=== PATIENT | male | born 1965 | race Caucasian/White ===

== ENCOUNTER → 2023-07-29 07:21 | Outpatient (REF) | payer OTHER, SELFPAY | LOC: HWRAD 07:21 | PROVIDERS: ATTENDING PHYSICIAN Specialist; FAMILY PHYSICIAN Family Medicine | DX: N20.0 Calculus of kidney (principal) | CPT/HCPCS: 74176 ==

== ENCOUNTER 2023-08-19 23:31 | Inpatient (IN) | payer OTHER, SELFPAY ==
[2023-08-19 19:17] VITALS: BP 114/74
[2023-08-19 19:29] LABS: % Basophils 0.4 % (0-2); % Eosinophils 0.2 % (0-6); % Immature Granulocytes 0.6 % (0-0.5); % Monocytes 6.2 % (1.7-9.3); % Neutrophils 90.6 % (42.2-75.2); Absolute Basophils 0.1 10^3/uL (0-0.2); Absolute Eosinophils 0.1 10^3/uL (0-0.7); Absolute Immature Granulocytes 0.2 10^3/uL (0-0.05); Absolute Lymphocytes 0.5 10^3/uL (1.2-3.4); Absolute Monocytes 1.7 10^3/uL (0.1-0.6); Hematocrit 44.2 % (39.0-52.0); Hemoglobin 15.4 g/dL (13.0-18.0); Mean Corp Hgb Conc. 34.8 g/dL (33.0-37.0); Mean Corpuscular Hgb 29.1 pg (27.0-31.0); Mean Corpuscular Volume 83.4 fL (80.0-94.0); Mean Platelet Volume 9.4 fL (7.4-10.4); Nucleated Red Blood Cells % 0 % (-); Platelet Count 249 10^3/uL (130-400); Red Cell Dist. Width 12.6 % (11.5-14.5); White Blood Cell Count 26.4 10^3/uL (4.8-10.8)
[2023-08-19 19:49] LABS: ALT (SGPT) 31 U/L (0-50); AST (SGOT) 27 U/L (17-59); Albumin 4.5 g/dl (3.5-5.0); Alkaline Phosphatase 74 U/L (38-126); Blood Urea Nitrogen 9 mg/dl (9-20); Calcium 9.1 mg/dl (8.4-10.2); Carbon Dioxide 27 mmol/L (22-30); Chloride 96 mmol/L (98-107); Glucose 207 mg/dl (70-99); Potassium 3.7 mmol/L (3.5-5.1); Sodium 133 mmol/L (135-145); Total Bilirubin 3.1 mg/dl (0.2-1.3); Total Protein 7.4 g/dl (6.3-8.2); eGFR > 60.00
[2023-08-19 22:18] VITALS: BMI 31.5
[2023-08-19] MEDS: TORADOL 30 MG IV (22:20)
[2023-08-19] MEDS: TYLENOL 1000 MG PO (22:20)
[2023-08-19 22:23] VITALS: BP 111/65
[2023-08-19 22:34] LABS: Erythrocyte Sed Rate 18 mm/hour (0-20)
--- NOTE | 2023-08-19 22:35 | ED.GENMED ---
History of Present Illness
<Gordy Ramos PA-C - Last Filed: 08/20/23 00:48>
General
Chief Complaint: Fever
Source: patient and spouse
Time Seen by Provider: 08/19/23 21:52
Travel History
Have you had any contact with someone who has COVID-19?: No
Do you have any symptoms of coronavirus? Fever > 100 degrees, chills, cough, shortness of breath, sore throat, loss of taste or smell, muscle aches, or headache?: No
History of Present Illness
History of Present Illness:
58-year-old male with past medical history of [id number] diabetes presenting the emergency department for evaluation of right knee pain, erythema, edema, fevers, chills and generally feeling unwell. Patient states the knee started to
bother him on Saturday after he had been changing the brakes on his car and this morning woke up with significant edema, erythema and pain. Patient states he felt febrile but did not know had a fever until later in the morning. Patient's last dose
of Motrin was around 10 AM. He does note that about 3 weeks ago he excellently burned himself with a table saw but states this area is different from the symptoms that brought him here today. Patient denies any trauma to the right knee. He denies
any tick bites. No known history of gout or other rheumatological disease.
Past History
<Gordy Ramos PA-C - Last Filed: 08/20/23 00:48>
Past History
ED Past Medical History: NIDDM and Other (Kidney stones)
ED Past Surgical History: Other (hernia)
Social History
Tobacco: Non-smoker
Alcohol: None
Drug: None
Personal:
Living: with family
Employment: Employed
Family History
Family History: Other
Review of Systems
<Gordy Ramos PA-C - Last Filed: 08/20/23 00:48>
Review of Systems
All Other Systems: ROS reviewed and negative except as documented in HPI and ROS
Phy Exam
<Godry Ramos PA-C - Last Filed: 08/20/23 00:48>
Physical Exam
Physical Exam:
GENERAL: Alert , in no apparent distress
EYE: conjunctiva clear
NECK: Supple, no significant adenopathy.
ENT: o/p clr, mmm.
CARDIAC: Regular rate and rhythm
LUNGS: Clear breath sounds bilaterally, no acute respiratory distress, no wheezes/rales/rhonchi
NEUROLOGICAL: Alert and oriented
SKIN: Warm and dry, right knee has significant erythema overlying the anterior patella extending laterally with small streaking medially. It is significantly hot to the touch, very tender. There are superficial abrasions distal to the knee that do
not appear infected
MUSCULOSKELETAL: well perfused. Patient unable to range of motion his right knee secondary to pain. No palpable effusion
PSYCH: Normal and appropriate interaction.
Scores
<Gordy Ramos PA-C - Last Filed: 08/20/23 00:48>
Heart Failure Risk
Heart Failure Risk Score: Not Applicable
Heart Score for Chest Pain Patients
STEMI patient?: Not applicable
Withdrawal Assessment of Alcohol
Withdrawal Assessment Completed?: Not applicable
Course
<Gordy Ramos PA-C - Last Filed: 08/20/23 00:48>
Orders/Labs/Results
Orders:
Orders
08/19/23 19:22
CMP [Comprehensive Metabolic Panel] Urgent
Complete Blood Count/With Diff Urgent
08/19/23 22:00
Acetaminophen [Tylenol] 1,000 mg PO NOW STA
Ketorolac [Toradol] 30 mg IV NOW STA
CR Knee- Right 4 Or More View* Urgent
Comment:
Reason For Exam: pain, fever, edema
08/19/23 22:09
Lyme Progressive Urgent
Blood Culture Q30M
GINGER Source: Blood/Venous
Specimen Description:
Blood Culture Q30M
GINGER Source: Blood/Venous
Specimen Description:
08/19/23 22:10
CRP [C-Reactive Protein] Urgent
ESR [Erythrocyte Sed Rate] Urgent
Lactic Acid Q4H
Comment: CANCEL 2nd LACTIC ACID IF 1st LACTIC ACID IS LESS THAN 2
08/19/23 23:17
Admit/Transfer Patient As Directed
Co-Sign Provider:
Level of Care: Inpatient admission
Assign to:: Medical/Surgical
Physician / Group: rissa
Diagnosis: prepatellar bursitis
Reason for Hospitalization: prepatellar burstitis
Expected length of stay greater than two midnights?: Yes
ELOS- Estimated Length of Stay in days: 2
I certify the patient meets the requirements for IP care: Yes
08/19/23 23:18
Code Status As Directed
Resuscitation Status: Full Code
08/20/23 02:00
Lactic Acid Q4H
Comment: CANCEL 2nd LACTIC ACID IF 1st LACTIC ACID IS LESS THAN 2
Abnormal Lab Results
08/19/23 08/19/23
19:22 22:10
WBC 26.4 H 10^3/uL
(4.8-10.8)
Abs Immat Gran (auto) 0.2 H 10^3/uL
(0-0.05)
Absolute Neuts (auto) 24.0 H 10^3/uL
(1.4-6.5)
Absolute Lymphs (auto) 0.5 L 10^3/uL
(1.2-3.4)
Absolute Monos (auto) 1.7 H 10^3/uL
(0.1-0.6)
Immature Gran % 0.6 H %
(0-0.5)
Neutrophils % 90.6 H %
(42.2-75.2)
Lymphocytes % 2.0 L %
(20.5-51.1)
Sodium 133 L mmol/L
(135-145)
Chloride 96 L mmol/L
(98-107)
Glucose 207 H mg/dl
(70-99)
Total Bilirubin 3.1 H mg/dl
(0.2-1.3)
C-Reactive Protein 223.40 H mg/L
(0.0-10.00)
08/19/23 19:22
08/19/23 19:22
Vital Signs
Initial and Last Documented VS:
Initial Vital Signs
Temp Pulse Resp BP Pulse Ox
100.4 F H 134 24 114/74 96
08/19/23 19:17 08/19/23 19:17 08/19/23 19:17 08/19/23 19:17 08/19/23 19:17
Last Documented Vital Signs
Temp Pulse Resp BP Pulse Ox
99 F 103 18 112/67 96
08/20/23 00:43 08/20/23 00:43 08/20/23 00:43 08/20/23 00:43 08/20/23 00:43
<Ashwin Rojas, DO - Last Filed: 08/19/23 22:41>
Orders/Labs/Results
Orders:
Orders
08/19/23 19:22
CMP [Comprehensive Metabolic Panel] Urgent
Complete Blood Count/With Diff Urgent
08/19/23 22:00
Acetaminophen [Tylenol] 1,000 mg PO NOW STA
Ketorolac [Toradol] 30 mg IV NOW STA
CR Knee- Right 4 Or More View* Urgent
Comment:
Reason For Exam: pain, fever, edema
08/19/23 22:09
Lyme Progressive Urgent
Blood Culture Q30M
GINGER Source: Blood/Venous
Specimen Description:
Blood Culture Q30M
GINGER Source: Blood/Venous
Specimen Description:
08/19/23 22:10
CRP [C-Reactive Protein] Urgent
ESR [Erythrocyte Sed Rate] Urgent
Lactic Acid Q4H
Comment: CANCEL 2nd LACTIC ACID IF 1st LACTIC ACID IS LESS THAN 2
08/19/23 23:17
Admit/Transfer Patient As Directed
Co-Sign Provider:
Level of Care: Inpatient admission
Assign to:: Medical/Surgical
Physician / Group: rissa
Diagnosis: prepatellar bursitis
Reason for Hospitalization: prepatellar burstitis
Expected length of stay greater than two midnights?: Yes
ELOS- Estimated Length of Stay in days: 2
I certify the patient meets the requirements for IP care: Yes
08/19/23 23:18
Code Status As Directed
Resuscitation Status: Full Code
08/20/23 02:00
Lactic Acid Q4H
Comment: CANCEL 2nd LACTIC ACID IF 1st LACTIC ACID IS LESS THAN 2
Abnormal Lab Results
08/19/23 08/19/23
19:22 22:10
WBC 26.4 H 10^3/uL
(4.8-10.8)
Abs Immat Gran (auto) 0.2 H 10^3/uL
(0-0.05)
Absolute Neuts (auto) 24.0 H 10^3/uL
(1.4-6.5)
Absolute Lymphs (auto) 0.5 L 10^3/uL
(1.2-3.4)
Absolute Monos (auto) 1.7 H 10^3/uL
(0.1-0.6)
Immature Gran % 0.6 H %
(0-0.5)
Neutrophils % 90.6 H %
(42.2-75.2)
Lymphocytes % 2.0 L %
(20.5-51.1)
Sodium 133 L mmol/L
(135-145)
Chloride 96 L mmol/L
(98-107)
Glucose 207 H mg/dl
(70-99)
Total Bilirubin 3.1 H mg/dl
(0.2-1.3)
C-Reactive Protein 223.40 H mg/L
(0.0-10.00)
08/19/23 19:22
08/19/23 19:22
Vital Signs
Initial and Last Documented VS:
Initial Vital Signs
Temp Pulse Resp BP Pulse Ox
100.4 F H 134 24 114/74 96
08/19/23 19:17 08/19/23 19:17 08/19/23 19:17 08/19/23 19:17 08/19/23 19:17
Last Documented Vital Signs
Temp Pulse Resp BP Pulse Ox
99 F 103 18 112/67 96
08/20/23 00:43 08/20/23 00:43 08/20/23 00:43 08/20/23 00:43 08/20/23 00:43
<Gordy Ramos PA-C - Last Filed: 08/20/23 00:48>
MDM/Problems Addressed
Differential Diagnosis Includes:
Septic arthritis, prepatellar bursitis, cellulitis
MDM/Problems Addressed:
58-year-old male present emergency department for evaluation of right knee pain, edema, erythema and fever. Symptoms started over the last 24 hours. Based off physical exam patient does not have any effusion that is palpable. I do have concern in
attempting to perform arthrocentesis given concern for cellulitis or prepatellar bursitis. Patient had basic labs ordered while in triage which revealed a leukocytosis of 26,000 with a leftward shift. Chemistry did yield a glucose greater than
200. I added on a lactic acid, blood cultures, inflammatory markers and Lyme's titer. X-ray of the right knee was ordered as well. Will discuss with orthopedics with ultimate plan to admit patient
Chronic conditions affecting care: DM
<Gordy Ramos PA-C - Last Filed: 08/20/23 00:48>
*Radiology
Radiology exam reviewed: preliminary read by ED provider (Soft tissue swelling, no fracture)
*Pulse Oximetry
Patient hypoxic: no
*Critical Care Note
Total Time (30-74mins, 75-104mins- exclusive of procedures): Not Applicable
<Gordy Ramos PA-C - Last Filed: 08/20/23 00:48>
Patient Management
Discussion with other providers: Hospitalist and Park Aide
Escalation/DeEscalation of care consider admission/obs:
Case discussed with orthopedics team who agrees with plan to hold off on aspirating the joint at this time. They also requested antibiotics be held until they evaluate the patient in the morning. Request patient be n.p.o. after midnight.
Hospitalist team is aware and accepts for continued evaluation and treatment.
ED Attending Note
<Gordy Ramos PA-C - Last Filed: 08/20/23 00:48>
-
Portions of this chart may have been created with voice recognition software.� Occasional wrong word or��sound alike� substitutions may have occurred due to the inherent limitations of voice recognition software.
<Ashwin Rojas DO - Last Filed: 08/19/23 22:41>
ED Attending Note
Patient seen and examined by attending physician: Yes
I performed the substantive portion of visit, reviewed & personally made and approve the management plan that is documented in note by myself or SHARYN.: Yes
ED Attending Note:
I have seen and evaluated the patient with a [id number] encounter. I have spoken to the advance practicer provider and involved in the medical history, the physical exam, medical decision making.
Evaluation and management service: agree unless noted differently below.
Results interpretation: agree unless noted differently below.
Focused HPI: 58-year-old male presenting with right knee pain and swelling. Symptoms have progressed over the past 24 hours. Patient found to be febrile. Patient states he was on his knees for 20+ minutes yesterday repairing break on the car
Physical exam: Swelling and tenderness to right knee with cellulitic changes and streaking
Medical Decision Making: Concern for septic arthritis versus septic prepatellar bursitis. Orthopedics made aware. Will refrain from antibiotics until orthopedics can evaluate
Discharge Plan
Departure
Patient Disposition: Admit
Date of Disposition: 08/19/23
Time of Disposition: 22:35
Presentation/result/management discussed w/ accepting MD/DO: Hospitalist
Discharge Problem:
Cellulitis of right knee
Interventions
Interventions:
*Risk Screen - Suicide Last Done: 08/19/23 19:17
*General Assessment Last Done: 08/19/23 22:18
*Neglect/Abuse Screening Last Done: 08/19/23 19:17
ED- Fall Risk Assessment Last Done: 08/19/23 22:18
*ED COVID-19 Vaccine History Last Done: 08/19/23 22:18
ED- Neurological Assessment Last Done: 08/19/23 22:18
ED-Skin Assessment Last Done: 08/19/23 23:18
[2023-08-19 23:00] VITALS: BP 100/66
--- NOTE | 2023-08-19 23:23 | HPS.HSE ---
Family Physician
-
Family Physician: Merry Mckeon MD
Chief Complaint
-
right knee pain, swelling and redness
History of Present Illness
58-year-old male past medical history of diabetes, kidney stones presenting for right knee pain, redness, swelling and fevers and chills and feeling unwell since yesterday after he had been changing the brakes in his car yesterday which involved
spending a lot of time on his knees. He denies any trauma to the right knee. 3 weeks ago he burned himself with a table saw after he knocked it over and it fell down striking his right calf. The burn area has been healing.
He denies smoking or alcohol use.
Medical History
Past Medical History
Past Medical History: Reports Other (diabetes, kidney stones)
Past Surgical History: Reports Other (hernia )
Social History
Tobacco: Non-smoker
Alcohol: None
Drug: None
Family History
Family History: Not pertinent
Allergies / Home Medications
Allergies reflects when Allergies were last updated in [employer].
Home Medications with original date entered in [employer]
Allergy/Medication List:
Allergies
Allergy/AdvReac Type Severity Reaction Status Date / Time
Penicillins Allergy breathing Verified 08/19/23 19:20
problems
and hives
Home Medications
aspirin 81 mg chewable tablet (Aspirin Childrens) 81 mg PO DAILY 07/15/18
metformin 500 mg tablet 500 mg PO BIDWMEAL 08/19/23
tamsulosin 0.4 mg capsule 0.4 mg PO QPM 08/19/23
Review of Systems
-
History Source: Patient
A 12 point ROS was completed and negative except as noted: Yes
Constitutional: Reports No Symptoms
EENT: Reports No Symptoms
Respiratory: Reports No Symptoms
Cardiac: Reports No Symptoms
Abdomen/GI: Reports No Symptoms
: Reports No Symptoms
Musculoskeletal: Reports No Symptoms
Skin: Reports No Symptoms
Neurological: Reports No Symptoms
Endocrine: Reports No Symptoms
Hematologic/Lymphatic: Reports No Symptoms
Psych: Reports No Symptoms
Physical Exam
Vital Signs
Vital Signs
Temp Pulse Resp BP Pulse Ox
101.8 F H 134 24 100/66 95
08/19/23 22:09 08/19/23 19:17 08/19/23 19:17 08/19/23 23:00 08/19/23 23:15
Physical Exam
General: Well Developed, Well Nourished and No Apparent Distress
HEENT: NormoCephalic, Moist mucous membranes and Atraumatic
Respiratory: Clear
Cardiac: S1/S2 and Regular Rhythm; No Murmur or Rub
GI: Soft, Non Tender, Non Distended and Normal Bowel Sounds; No Organomegaly
Rectal: Deferred by Provider
Musculoskeletal: No Clubbing, No Cyanosis, No Edema and Other (right knee suprapatellar erythema, tenderness and swelling )
Skin: No Rash
Neuro: Nonfocal/grossly intact
Laboratory Results
-
08/19/23 19:22
08/19/23 19:22
Laboratory Results
Lactic Acid 2.0 mmol/L (0.7-2.0) 08/19/23 22:10
Total Bilirubin 3.1 mg/dl (0.2-1.3) H 08/19/23 19:22
AST 27 U/L (17-59) 08/19/23 19:22
ALT 31 U/L (0-50) 08/19/23 19:22
Alkaline Phosphatase 74 U/L (38-126) 08/19/23 19:22
Data Reviewed
-
Lab Data: Labs Reviewed by me
Old Records: Reviewed
Impression/Plan
-
IMPRESSION:
PLAN:
# Sepsis (fever, leukocytosis, tachycardia) likely secondary to prepatellar bursitis versus less likely septic arthritis of right knee
-X-ray pending
-IV fluids
-Check blood cultures
-Lyme pending
-Tylenol, Toradol, Dilaudid for pain as needed
-Ortho recommended holding off on antibiotics for possible OR tomorrow
-Hold prophylactic aspirin for now
-NPO past midnight
# Right lower Skin burn
-Has been healing
Type 2 diabetes
-Continue metformin
-Insulin sliding scale
History of kidney stones
-Continue tamsulosin
Full code
DVT prophylaxis�SCDs
Regular diet
--- NOTE | 2023-08-20 00:28 | EDRN ---
Patient resting comfortably aware will be going upstairs shortly, called his to let her know where he will be going, patients temp is down and patient is resting comfortably.
[2023-08-20 00:43] VITALS: BP 112/67; BMI 30.7
[2023-08-20] MEDS: NSS 1000 IV ×2 (02:29→10:52)
[2023-08-20 06:31] LABS: Glucose - Point of Care 176 mg/dl (70-99)
[2023-08-20] MEDS: NOVOLOG FLEXPEN-LOW RESISTANCE 1 UNITS SC (06:43)
[2023-08-20 07:59] LABS: % Basophils 0.4 % (0-2); % Eosinophils 0.7 % (0-6); % Immature Granulocytes 0.8 % (0-0.5); % Lymphocytes 1.5 % (20.5-51.1); % Monocytes 5.7 % (1.7-9.3); % Neutrophils 90.9 % (42.2-75.2); Absolute Basophils 0.1 10^3/uL (0-0.2); Absolute Eosinophils 0.2 10^3/uL (0-0.7); Absolute Immature Granulocytes 0.2 10^3/uL (0-0.05); Absolute Lymphocytes 0.3 10^3/uL (1.2-3.4); Absolute Monocytes 1.3 10^3/uL (0.1-0.6); Absolute Neutrophils 20.5 10^3/uL (1.4-6.5); Hematocrit 39.2 % (39.0-52.0); Hemoglobin 13.8 g/dL (13.0-18.0); Mean Corp Hgb Conc. 35.2 g/dL (33.0-37.0); Mean Corpuscular Hgb 29.2 pg (27.0-31.0); Mean Corpuscular Volume 82.9 fL (80.0-94.0); Nucleated Red Blood Cells % 0 % (-); Platelet Count 214 10^3/uL (130-400); Red Blood Cell Count 4.73 10^6/uL (4.70-6.10); Red Cell Dist. Width 12.6 % (11.5-14.5); White Blood Cell Count 22.5 10^3/uL (4.8-10.8)
[2023-08-20 08:21] VITALS: BP 109/70
[2023-08-20 08:34] LABS: ALT (SGPT) 27 U/L (0-50); AST (SGOT) 30 U/L (17-59); Albumin 3.6 g/dl (3.5-5.0); Alkaline Phosphatase 77 U/L (38-126); Blood Urea Nitrogen 18 mg/dl (9-20); Calcium 8.6 mg/dl (8.4-10.2); Carbon Dioxide 24 mmol/L (22-30); Chloride 97 mmol/L (98-107); Estimated Creatinine Clearance 77 ml/min; Glucose 217 mg/dl (70-99); Potassium 3.9 mmol/L (3.5-5.1); Sodium 132 mmol/L (135-145); Total Bilirubin 2.9 mg/dl (0.2-1.3); Total Protein 6.1 g/dl (6.3-8.2); eGFR > 60.00
--- NOTE | 2023-08-20 08:57 | CON.ORTHO ---
Consultation
-
Date/Time Consultation Requested: 08/20/23
Date/Time Consultation Performed: 08/20/23 @8am
Requesting Provider: Gordy Ramos
Performing Provider: Dayna Cespedes PA-C for Megan Rodríguez
Reason for Consultation: right knee pain
Consultation - Orthopedics
History
HPI: 58yo male presents to [facility] for right knee pain. Over the weekend, he was kneeling on his knees alot while he was changing the brakes on his car. He noticed slight discomfort at the time that seemed to resolve. Yesterday, he noticed
increased pain, swelling, warmth, and redness to the knee. He was also feeling generally unwell with chills. He denies any other injury to the knee. He has not previously injured the knee. This morning, he states that he no longer feels feverish or
chills, however he continues with discomfort in the knee. He has pain with range of motion. The pain is mostly located to the anterior knee at the area of swelling. He does not take any blood thinners. He did not take any medications for the pain
prior to arrival.
PAST MEDICAL HISTORY: NIDDM, kidney stones
PAT SURGICAL HISTORY: hernia repair
SOCIAL HISTORY: denies tobacco, alcohol
FAMILY HISTORY: Non contributory
REVIEW OF SYSTEMS: 12 point review of systems obtained and negative except those mentioned in the HPI
Allergies / Home Medications
Allergy/AdvReac Type Severity Reaction Status Date / Time
Penicillins Allergy breathing Verified 08/19/23 19:20
problems
and hives
�Medication �Instructions �Recorded
aspirin 81 mg chewable tablet 81 mg PO DAILY 07/15/18
(Aspirin Childrens)
metformin 500 mg tablet 500 mg PO BIDWMEAL 08/19/23
tamsulosin 0.4 mg capsule 0.4 mg PO QPM 08/19/23
Vital Signs / Lab Results
Temp Pulse Resp BP Pulse Ox
100.3 F 100 18 109/70 93
08/20/23 08:21 08/20/23 08:21 08/20/23 08:21 08/20/23 08:21 08/20/23 08:21
08/20/23 07:40
08/20/23 07:40
RADIOGRAPHIC FINDINGS
Xray right knee with no fractures or dislocations. Joint spaces well maintained
PHYSICAL EXAM:
General: well developed well nourished male in no acute distress
HEENT: NCAT, sclera anicteric, normal hearing
Heart: No JVD
Lungs: Normal work of breathing on room air
MSK: Focused exam of right knee with mild erythema generally about the anterior knee. Slight warmth over the patella. Small palpable fluid collection to anterior knee. No effusion. ROM 0-90 with reported pain. All ligamnets appear stable. Calf soft
and nontender. NVI distally
Assessment / Plan
ASSESSMENT: 58yo male with right knee prepatellar bursitis
PLAN: Mr. Albarran was admitted to the hospital for right knee pain, erythema, and swelling. He does have mild erythema and swelling to the anterior knee consistent with prepatellar bursitis. No effusion noted, therefore aspiration of the knee joint
not performed. No plans for surgical intervention. Patient may have diet. Recommend IV ancef for right knee and continue to monitor for improvement in symptoms. If symptoms improve can consider transition to oral antibiotics. Follow up outpatient
after discharge from the hospital. Orthopedics will sign off. Please reach out with any other orthopedic questions or concerns.
[2023-08-20 09:22] LABS: Glycohemoglobin (HgbA1c) 10.6 % (4.0-5.6)
--- NOTE | 2023-08-20 11:46 | CM ---
Patient seen bedside with , initial assessment completed. Patient reports he resides in a one story home, two steps to enter. Patient denies DME, VN, or SNF. Patient confirms PCP Merry Mckeon, pharmacy [facility]. Patient confirms prescription
coverage, denies food insecurities. CM will continue to follow for discharge planning needs.
Plan; home no needs likely.
[2023-08-20] MEDS: TYLENOL 650 MG PO ×2 (12:25→23:11)
--- NOTE | 2023-08-20 12:57 | W.PN.HOSP.TC ---
Addendum entered and electronically signed by Ky Ambriz MD 08/20/23 14:33:
call from Dr. Manrique, would like IRAD to attempt drain Rt Knee. He will place orders for fluid analysis and hold on abx until tapped
Original Note:
Today's Communication/Plan
-
ID consult
start on diet
abx as per ID (pt listed allergic to PCN)
Assessment / Plan
Assessment / Plan
# Sepsis (fever, leukocytosis, tachycardia) likely secondary to prepatellar bursitis versus less likely septic arthritis of right knee
-X-ray pending
-IV fluids
-Check blood cultures
-Lyme pending
-Tylenol, Toradol, Dilaudid for pain as needed
-Ortho recommended no tap and no surgery, will request ID input
-Hold prophylactic aspirin for now
-with no surgery planned will order diet
# Right lower Skin burn
-Has been healing
Type 2 diabetes
-hold metformin
-Insulin sliding scale
History of kidney stones
-Continue tamsulosin
Full code
DVT prophylaxis�SCDs
Regular diet
Anticipated Discharge: > 48 hours
Subjective/Interval History
-
Date of Service: August 20, 2023
Awake, alert
Objective Data
-
Labs:
Laboratory Results
08/20/23
07:40
WBC 22.5 H
Hgb 13.8
Hct 39.2
Plt Count 214
Sodium 132 L
Potassium 3.9
Chloride 97 L
Carbon Dioxide 24
BUN 18
Creatinine 1.1
Glucose 217 H
Calcium 8.6
Total Bilirubin 2.9 H
AST 30
ALT 27
Alkaline Phosphatase 77
Vital Signs:
Vital Signs
Temp Pulse Resp BP Pulse Ox
100.3 F 100 18 109/70 93
08/20/23 08:21 08/20/23 08:21 08/20/23 08:21 08/20/23 08:21 08/20/23 08:21
I&O
08/19/23 08/20/23 08/21/23
06:59 06:59 06:59
Intake Total 550 / 550
Balance 550 / 550
Review of Systems
-
History Source: Patient and Coordinated Provider
Constitutional: Reports Fever (101.8)
EENT: Reports No Symptoms Reported
Respiratory: Reports No Symptoms
Cardiac: Reports No Symptoms
Abdomen/GI: Reports No Symptoms
Neuro: Reports No Symptoms
Physical Exam
-
General: Well Developed, Well Nourished and No Apparent Distress
HEENT: Normocephalic, Atraumatic and Moist Mucous Membranes
Respiratory: Clear to Auscultation; Negative Wheezes, Rales or Rhonchi
Cardiac: Regular Rhythm and S1/S2
GI: Soft, Nontender and Nondistended
Musculoskeletal: No Clubbing, No Cyanosis, No Edema and Other (rt knee swollen and tender)
Skin: Rash (rt knee)
Neuro: Awake, Alert and Oriented
[2023-08-20 13:22] LABS: Glucose - Point of Care 190 mg/dl (70-99)
[2023-08-20] MEDS: NOVOLOG FLEXPEN-LOW RESISTANCE SC (13:24)
--- NOTE | 2023-08-20 14:38 | CON.ID ---
Consultation
-
Date/Time Consultation Requested: 08/20/23 1307
Date/Time Consultation Performed: 08/20/2023 1411
Requesting Provider: Dr. Ambriz
Performing Provider: Dr. Manrique
Reason for Consultation: Right knee infection
Chief Complaint / Past History
History of Present Illness
Reginaldo Albarran is a 58-year-old male being evaluated at the request of Dr. Ambriz in regards to right knee infection. History is obtained from chart review, along with patient interview.
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 Later in the evening he noted some throbbing of the right knee, and yesterday morning when he woke up the knee was noted to be swollen and he found it difficult to move.
He additionally noted erythema in the anterior aspect of the knee. He denied any groin swelling or erythema extending up the leg. He admits to some fevers and chills, and ultimately came to the emergency room later in the evening for further
evaluation. Here, he was found to have a marked leukocytosis and elevated CRP.
He has been evaluated by Orthopedics, and not felt to have septic arthritis.
The patient was not felt to have enough fluid for aspiration.
The patient denies any tick bites. He has not had any rashes on his body. He does have a pet dog, though.
Currently he notes ongoing pain in the knee, finding it difficult to bend it to any great degree. He currently notes discomfort with palpation on the medial and lateral aspects.
Past History
Additional Past Medical History:
DM
Nephrolithiasis
Additional Past Surgical History:
Hernia repair
Allergy History:
Penicillins Allergy (Verified 08/19/23 19:20)
breathing problems and rash in the teens.
Medications Reviewed: Yes
Current Antibiotics:
None
Social History
Tobacco: Non-Smoker
Alcohol: None
Drug: None
Employment: Employed
Family History
Family History: Not Pertinent
Review of Systems
Review of Systems
General: Fever and Chills
Genital / Urological: Negative Flank Pain
Musculoskeletal: Joint Pain and Joint Swelling; Negative Myalgias
Vital Signs
Temp Pulse Resp BP Pulse Ox
99.0 F 100 18 109/70 93
08/20/23 13:26 08/20/23 08:21 08/20/23 08:21 08/20/23 08:21 08/20/23 08:21
Physical Exam
Physical Exam
Constitutional: No Acute Distress, Comfortable and Non-toxic
Eyes: Pupils Equal, Pupils Round, No Conjunctival Hemorrhage and Sclera Anicteric
Oral: No Thrush and No Ulcers
Cardiovascular: S1/S2; Negative S3/S4
Pulmonary: Clear; Negative Wheezes, Rales or Rhonchi
Gastrointestinal: Soft, Non Tender and Non Distended
Musculoskeletal: Joint Swelling (right knee) and Joint Effusion (minimal)
Skin: Warm and Dry; Negative Rash or Jaundice
Wound: None
Neurological: Awake, Alert and Oriented
Psychological: Calm
Lab / Diagnostic Study Results
08/20/23 07:40
08/20/23 07:40
Abs Immat Gran (auto) 0.2 10^3/uL (0-0.05) H 08/20/23 07:40
Absolute Neuts (auto) 20.5 10^3/uL (1.4-6.5) H 08/20/23 07:40
Absolute Lymphs (auto) 0.3 10^3/uL (1.2-3.4) L 08/20/23 07:40
Absolute Monos (auto) 1.3 10^3/uL (0.1-0.6) H 08/20/23 07:40
Absolute Basos (auto) 0.1 10^3/uL (0-0.2) 08/20/23 07:40
Immature Gran % 0.8 % (0-0.5) H 08/20/23 07:40
Neutrophils % 90.9 % (42.2-75.2) H 08/20/23 07:40
Lymphocytes % 1.5 % (20.5-51.1) L 08/20/23 07:40
Monocytes % 5.7 % (1.7-9.3) 08/20/23 07:40
Eosinophils % 0.7 % (0-6) 08/20/23 07:40
Basophils % 0.4 % (0-2) 08/20/23 07:40
ESR 18 mm/hour (0-20) 08/19/23 22:10
Lactic Acid Cancelled 08/20/23 02:00
C-Reactive Protein 223.40 mg/L (0.0-10.00) H 08/19/23 22:10
Microbiology Results
Micro:
08/19/23 22:09 Blood Culture - Pending
Blood/Venous
08/19/23 22:09 Blood Culture - Pending
Blood/Venous
Assessment / Plan
Right knee pain and swelling.
Leukocytosis
Fever
Elevated CRP
DM (uncontrolled; HbA1c = 10.6)
Hx nephrolithiasis
Recommendations:
Would consult IR for joint aspiration for culture, cell count and differential, crystal exam, along with Lyme PCR. Orders placed.
Hold on antibiotics for the present.
Lyme serology pending.
Monitor white count and temperature curve.
Monitor pending cultures.
Care Review
Plan reviewed with: Physician (Hospitalist)
[2023-08-20 16:18] VITALS: BP 109/68
[2023-08-20] MEDS: FLOMAX 0.400000000000000022 MG PO (17:29)
[2023-08-20 17:41] LABS: Glucose - Point of Care 237 mg/dl (70-99)
[2023-08-20] MEDS: NOVOLOG FLEXPEN-LOW RESISTANCE 2 UNITS SC (17:43)
[2023-08-20 21:14] LABS: Glucose - Point of Care 222 mg/dl (70-99)
[2023-08-20 23:08] VITALS: BP 106/65
[2023-08-20] MEDS: TORADOL 10 MG IV (23:21)
--- NOTE | 2023-08-21 | PTCARENOTE ---
Patient with 101.9 fever, DIRECTOR OF PRIMARY aware, no new orders given. Tylenol given for fever and torodol given for increased right knee pain. Will continue to monitor temperature.
[2023-08-21] MEDS: TORADOL 10 MG IV ×2 (05:31→20:03)
[2023-08-21 07:37] LABS: % Basophils 0.4 % (0-2); % Eosinophils 3.1 % (0-6); % Lymphocytes 3.8 % (20.5-51.1); % Neutrophils 86.7 % (42.2-75.2); Absolute Basophils 0.1 10^3/uL (0-0.2); Absolute Eosinophils 0.6 10^3/uL (0-0.7); Absolute Immature Granulocytes 0.2 10^3/uL (0-0.05); Absolute Lymphocytes 0.7 10^3/uL (1.2-3.4); Absolute Neutrophils 16.8 10^3/uL (1.4-6.5); Hematocrit 36.3 % (39.0-52.0); Hemoglobin 12.7 g/dL (13.0-18.0); Mean Corpuscular Hgb 28.5 pg (27.0-31.0); Mean Corpuscular Volume 81.6 fL (80.0-94.0); Mean Platelet Volume 10.2 fL (7.4-10.4); Nucleated Red Blood Cells % 0 % (-); Platelet Count 216 10^3/uL (130-400); Red Blood Cell Count 4.45 10^6/uL (4.70-6.10); Red Cell Dist. Width 12.6 % (11.5-14.5); White Blood Cell Count 19.4 10^3/uL (4.8-10.8)
[2023-08-21 07:46] LABS: Blood Urea Nitrogen 20 mg/dl (9-20); Calcium 8.7 mg/dl (8.4-10.2); Carbon Dioxide 24 mmol/L (22-30); Chloride 99 mmol/L (98-107); Estimated Creatinine Clearance 94 ml/min; Glucose 192 mg/dl (70-99); Potassium 3.5 mmol/L (3.5-5.1); Sodium 133 mmol/L (135-145); eGFR > 60.00
[2023-08-21 08:05] VITALS: BP 110/71
--- NOTE | 2023-08-21 08:15 | W.PN.UPDATE ---
Update Note
Progress Note Update
Mr. Albarran is resting comfortably in bed this morning. He reports his knee has continued to be quite painful since yesterday. He reports difficulty with ROM and bearing weight. He does report improvement in his symptoms with Tylenol and Toradol. He
reports he did have fevers on and off overnight.
Directed exam of the right lower extremity reveals erythema and prepatellar edema. Erythema does appear to have passed the lines marked yesterday. Tenderness to palpation generally about the anterior knee. ROM limited secondary to pain. AROM 0-60.
Calf soft and nontender. Neurovascularly intact distally.
WBC 19.4.
Blood cultures currently negative.
Septic prepatellar bursitis
--We are currently awaiting IR aspiration of prepatellar bursa. Will continue to monitor.
--Continue to hold antibiotics for now until IR aspiration has been performed. Would appreciate ID recommendations post-aspiration.
--May perform gentle ROM of the knee. WBAT to RLE.
--Continue pain control.
--Orthopedics will continue to follow along. Please reach out with any additional questions or concerns.
[2023-08-21 08:28] LABS: Glucose - Point of Care 266 mg/dl (70-99)
[2023-08-21] MEDS: NOVOLOG FLEXPEN-LOW RESISTANCE 3 UNITS SC ×2 (09:01→13:02)
[2023-08-21 09:20] VITALS: BP 131/72; BP_SYST 102
[2023-08-21 10:08] VITALS: BP 113/78; BP_SYST 95
--- NOTE | 2023-08-21 10:23 | PTCARENOTE ---
Pt returned from IR via stretcher s/p Rt knee aspiration. pt AAO x3, KIRK; ambulatory to bed with minimal assistance. Rt knee bandaid D/I. No c/o at present. Will continue to monitor.
[2023-08-21] MEDS: TYLENOL 650 MG PO ×2 (10:29→17:54)
--- NOTE | 2023-08-21 10:50 | W.PN.ID1 ---
Date of Service
Date of Service: August 21, 2023
Today's Communication
Begin cefazolin
Assessment / Plan
Right knee pain and swelling.
- s/p prepatellar aspiration
Leukocytosis
Fever
Elevated CRP
DM (uncontrolled; HbA1c = 10.6)
Hx nephrolithiasis
Recommendations:
S/P prepatellar aspiration
Will begin empiric cefazolin
Lyme serology pending.
Monitor white count and temperature curve.
Monitor pending cultures.
Chief Complaint
-: Fever and Cellulitis
Subjective / Review of Systems
Patient seen and examined. Reports ongoing right knee discomfort. He is status post prepatellar aspiration earlier today.
Vital Signs / Physical Exam
Vital Signs
Vital Signs
Temp Pulse Resp BP Pulse Ox
98.8 F 95 14 113/78 98
08/21/23 09:20 08/21/23 10:08 08/21/23 10:08 08/21/23 10:08 08/21/23 10:08
Physical Exam
Constitutional: No Acute Distress, Comfortable and Non-toxic
Eyes: Sclera Anicteric
Cardiovascular: S1/S2; Negative S3/S4
Pulmonary: Non Labored; Negative Wheezes
Gastrointestinal: Soft and Non Tender
Extremities: Other (Right knee with mild erythema in the prepatellar area. Lateral and medial tenderness to palpation noted. No inguinal adenopathy.)
Skin: Warm and Dry; Negative Rash or Jaundice
Neurological: Awake and Alert
Psychological: Calm
Objective Data
Lab Data
Lab Results
08/21/23 06:35
08/21/23 06:35
ESR 18 mm/hour (0-20) 08/19/23 22:10
Estimated Creat Clear 94 ml/min 08/21/23 06:35
Lactic Acid Cancelled 08/20/23 02:00
Total Bilirubin 2.9 mg/dl (0.2-1.3) H 08/20/23 07:40
AST 30 U/L (17-59) 08/20/23 07:40
ALT 27 U/L (0-50) 08/20/23 07:40
Alkaline Phosphatase 77 U/L (38-126) 08/20/23 07:40
C-Reactive Protein 223.40 mg/L (0.0-10.00) H 08/19/23 22:10
Most recent labs reviewed.
Micro Results:
08/21/23 10:05 Wound Culture - Pending
Knee - Right Gram Stain - Pending
08/19/23 22:09 Blood Culture - Preliminary
Blood/Venous No Growth in 24 hours- Final report to follow
08/19/23 22:09 Blood Culture - Preliminary
Blood/Venous No Growth in 24 hours- Final report to follow
Care Review
Plan reviewed with: Other (Clinical Pharmicist.)
[2023-08-21 11:31] LABS: Glucose - Point of Care 267 mg/dl (70-99)
--- NOTE | 2023-08-21 11:51 | CM ---
Patient seen, aspiration of knee this AM. Patient on IV antibiotics. Reports no needs to CM at this time. CM will continue to be available, will follow for discharge planning needs.
Plan; home no needs, watch for IV antibiotic needs.
[2023-08-21] MEDS: ANCEF 60 MG IV (12:09)
[2023-08-21] MEDS: FLUSH (NSS) 1 FLUSH IV (12:10)
--- NOTE | 2023-08-21 13:21 | W.PN.HOSP.TC ---
Today's Communication/Plan
-
add standing dose of Lantus
started on Ancef
Assessment / Plan
Assessment / Plan
# Sepsis (fever, leukocytosis, tachycardia) likely secondary to prepatellar bursitis versus less likely septic arthritis of right knee
-X-ray: Degenerative changes with slight progression.
Prepatellar soft tissue prominence, nonspecific, possibly representing prepatellar bursitis.
-IV fluids stopped
WBC 26.4-->22.5-->19.4k
blood cultures NGTD
-Lyme pending
-Tylenol, Toradol, Dilaudid for pain as needed
-Ortho recommended no tap and no surgery, appreciate ID input, pt started on Ancef
-Hold prophylactic aspirin for now
# Right lower Skin burn
-Has been healing
Type 2 diabetes - poorly controlled, pt aware and reviewed with him
a1c 10.6%
-hold metformin
-Insulin sliding scale
will add standing PM dose of insulin
glu 190-266
History of kidney stones
-Continue tamsulosin
Full code
DVT prophylaxis�SCDs
Regular diabetic diet
Anticipated Discharge: > 48 hours
Subjective/Interval History
-
Date of Service: August 21, 2023
underwent bursa collection aspiration today
Objective Data
-
Labs:
Laboratory Results
08/21/23
06:35
WBC 19.4 H
Hgb 12.7 L
Hct 36.3 L
Plt Count 216
Sodium 133 L
Potassium 3.5
Chloride 99
Carbon Dioxide 24
BUN 20
Creatinine 0.9
Glucose 192 H
Calcium 8.7
Vital Signs:
Vital Signs
Temp Pulse Resp BP Pulse Ox
98.8 F 95 14 113/78 98
08/21/23 09:20 08/21/23 10:08 08/21/23 10:08 08/21/23 10:08 08/21/23 10:08
I&O
08/20/23 08/21/23 08/22/23
06:59 06:59 06:59
Intake Total 550 / 550 720 / 720
Balance 550 / 550 720 / 720
Review of Systems
-
History Source: Patient and Coordinated Provider
Constitutional: Reports Fever (101.9 at 23:08)
EENT: Reports No Symptoms Reported
Respiratory: Reports No Symptoms
Cardiac: Reports No Symptoms
Abdomen/GI: Reports No Symptoms
Neuro: Reports No Symptoms
Physical Exam
-
General: Well Developed, Well Nourished and No Apparent Distress
HEENT: Normocephalic, Atraumatic and Moist Mucous Membranes
Respiratory: Clear to Auscultation; Negative Wheezes, Rales or Rhonchi
Cardiac: Regular Rhythm and S1/S2
GI: Soft, Nontender and Nondistended
Musculoskeletal: No Clubbing, No Cyanosis, No Edema and Other (rt knee swollen and tender)
Skin: Rash (rt knee)
Neuro: Awake, Alert and Oriented
[2023-08-21 15:00] VITALS: BP 121/66
--- NOTE | 2023-08-21 17:25 | PTCARENOTE ---
Pt AAO x3, KIRK; OOB to BR; cachorro well. VSS. On room air- pulseox 96%, no c/o SOB. Abd soft, rounded, cachorro PO well. Voiding in BR without difficulty. Rt knee redened/+1 edema; bandaid to site D/I. Resting in bed at present, no c/o. Will
continue to monitor.
[2023-08-21 17:33] LABS: Glucose - Point of Care 222 mg/dl (70-99)
[2023-08-21] MEDS: FLOMAX 0.400000000000000022 MG PO (17:49)
[2023-08-21] MEDS: NOVOLOG FLEXPEN-LOW RESISTANCE 2 UNITS SC (17:49)
--- NOTE | 2023-08-21 17:57 | PTCARENOTE ---
Temp currently 100.7 PO; Tylenol 650 mg PO given, will continue to monitor.
[2023-08-21 21:02] LABS: Glucose - Point of Care 308 mg/dl (70-99)
[2023-08-21] MEDS: ANCEF 10 IV (21:43)
[2023-08-21] MEDS: LANTUS 0.200000000000000011 UNITS SC (21:43)
[2023-08-21 23:17] VITALS: BP 107/73
[2023-08-22] VITALS (18 sets, daily range): BP systolic 97–136; BP diastolic 61–84
[2023-08-22] MEDS: ANCEF 10 IV ×3 (05:36→21:22)
[2023-08-22] MEDS: TORADOL 10 MG IV (05:46)
[2023-08-22 06:52] LABS: % Basophils 0.4 % (0-2); % Eosinophils 3.5 % (0-6); % Immature Granulocytes 1.4 % (0-0.5); % Lymphocytes 5.7 % (20.5-51.1); % Monocytes 6.1 % (1.7-9.3); % Neutrophils 82.9 % (42.2-75.2); Absolute Basophils 0.1 10^3/uL (0-0.2); Absolute Eosinophils 0.6 10^3/uL (0-0.7); Absolute Immature Granulocytes 0.3 10^3/uL (0-0.05); Absolute Lymphocytes 1.1 10^3/uL (1.2-3.4); Absolute Monocytes 1.1 10^3/uL (0.1-0.6); Absolute Neutrophils 15.4 10^3/uL (1.4-6.5); Hematocrit 35.6 % (39.0-52.0); Hemoglobin 12.6 g/dL (13.0-18.0); Mean Corp Hgb Conc. 35.4 g/dL (33.0-37.0); Mean Corpuscular Hgb 28.7 pg (27.0-31.0); Mean Corpuscular Volume 81.1 fL (80.0-94.0); Mean Platelet Volume 10.2 fL (7.4-10.4); Nucleated Red Blood Cells % 0 % (-); Platelet Count 269 10^3/uL (130-400); Red Blood Cell Count 4.39 10^6/uL (4.70-6.10); Red Cell Dist. Width 12.5 % (11.5-14.5); White Blood Cell Count 18.5 10^3/uL (4.8-10.8)
[2023-08-22 07:13] LABS: Blood Urea Nitrogen 18 mg/dl (9-20); Calcium 8.8 mg/dl (8.4-10.2); Carbon Dioxide 26 mmol/L (22-30); Chloride 98 mmol/L (98-107); Estimated Creatinine Clearance 106 ml/min; Glucose 227 mg/dl (70-99); Potassium 3.6 mmol/L (3.5-5.1); Sodium 134 mmol/L (135-145); eGFR > 60.00
[2023-08-22 07:54] LABS: Glucose - Point of Care 219 mg/dl (70-99)
--- NOTE | 2023-08-22 08:00 | W.PN.UPDATE ---
Update Note
Progress Note Update
Right knee septic pretella bursa worsening so recommend I & D later today. NPO now and consent signed.
[2023-08-22] MEDS: NOVOLOG FLEXPEN-LOW RESISTANCE 2 UNITS SC (08:59)
--- NOTE | 2023-08-22 09:31 | CM ---
Met with patient at bedside
Reported that he is going to the OR today for a procedure
Plan: discharge to home when medically stable; will continue to monitor for DC needs; may need DH VNA VN
[2023-08-22] MEDS: D5/0.45%NSS with KCL 10 MEQ 1000 IV (10:52)
--- NOTE | 2023-08-22 11:27 | W.PN.HOSP.TC ---
Today's Communication/Plan
-
for orthopedic intervention
add IVF while pt NPO
Assessment / Plan
Assessment / Plan
# Sepsis (fever, leukocytosis, tachycardia) likely secondary to prepatellar bursitis versus less likely septic arthritis of right knee
-X-ray: Degenerative changes with slight progression.
Prepatellar soft tissue prominence, nonspecific, possibly representing prepatellar bursitis.
-IV fluids stopped
WBC 26.4-->22.5-->19.4-->18.5k
blood cultures NGTD
Gm stain: mod WBC, no organisms seen
-Lyme pending
-Tylenol, Toradol, Dilaudid for pain as needed
- pt started on Ancef
-Hold prophylactic aspirin for now
# Right lower Skin burn
-Has been healing
Type 2 diabetes - poorly controlled, pt aware and reviewed with him
a1c 10.6%
-hold metformin
-Insulin sliding scale
added standing PM dose of insulin, with pt now NPO, will start IV D51/2 to avoid hypoglycemia, nurse to to call me post op after he eats, will dc at that time
glu 190-266
History of kidney stones
-Continue tamsulosin
Full code
DVT prophylaxis�SCDs
Regular diabetic diet
Anticipated Discharge: > 48 hours
Subjective/Interval History
-
Date of Service: August 22, 2023
redness of knee has enlarged and now NPO for surgical I&D and wash out later today
Objective Data
-
Labs:
Laboratory Results
08/22/23
06:19
WBC 18.5 H
Hgb 12.6 L
Hct 35.6 L
Plt Count 269 D
Sodium 134 L
Potassium 3.6
Chloride 98
Carbon Dioxide 26
BUN 18
Creatinine 0.8
Glucose 227 H
Calcium 8.8
Vital Signs:
Vital Signs
Temp Pulse Resp BP Pulse Ox
97.8 F 90 17 104/61 96
08/22/23 07:35 08/22/23 07:35 08/22/23 07:35 08/22/23 07:35 08/22/23 07:35
I&O
08/21/23 08/22/23 08/23/23
06:59 06:59 06:59
Intake Total 720 / 720 870 / 870
Balance 720 / 720 870 / 870
Review of Systems
-
History Source: Patient and Coordinated Provider
Constitutional: Reports Fever (100.7 at 17:56)
EENT: Reports No Symptoms Reported
Respiratory: Reports No Symptoms
Cardiac: Reports No Symptoms
Abdomen/GI: Reports No Symptoms
Neuro: Reports No Symptoms
Physical Exam
-
General: Well Developed, Well Nourished and No Apparent Distress
HEENT: Normocephalic, Atraumatic and Moist Mucous Membranes
Respiratory: Clear to Auscultation; Negative Wheezes, Rales or Rhonchi
Cardiac: Regular Rhythm and S1/S2
GI: Soft, Nontender and Nondistended
Musculoskeletal: No Clubbing, No Cyanosis, No Edema and Other (rt knee swollen and tender)
Skin: Rash (rt knee cellulitic rash has enlarged past 24 hrs)
Neuro: Awake, Alert and Oriented
[2023-08-22 12:13] LABS: Glucose - Point of Care 262 mg/dl (70-99)
[2023-08-22] MEDS: NOVOLOG FLEXPEN-LOW RESISTANCE SC (12:54)
[2023-08-22 15:13] LABS: Lyme Antibody Screen, EIA Negative (Negative)
[2023-08-22 17:59] LABS: Glucose - Point of Care 203 mg/dl (70-99)
[2023-08-22] MEDS: DILAUDID 0.25 MG IV ×2 (18:01→18:32)
[2023-08-22] MEDS: DILAUDID 0.5 MG IV ×3 (18:06→20:41)
--- NOTE | 2023-08-22 18:07 | W.PN.UPDATE ---
Update Note
Progress Note Update
Orthopedic surgery postoperative note:
Patient is status post right knee prepatellar bursa I&D.� Still waking up from anesthesia. Moving left foot.� DP 2+, cap refill brisk. He may weight-bear as tolerated at his left lower extremity.� Pain control, PT OT.� Surgical cultures sent.
Continue abx. Will continue to follow.
[2023-08-22 19:33] LABS: Glucose - Point of Care 265 mg/dl (70-99)
[2023-08-22] MEDS: NSS 1000 IV (19:39)
[2023-08-22] MEDS: NOVOLOG FLEXPEN-LOW RESISTANCE 3 UNITS SC (19:39)
--- NOTE | 2023-08-22 19:40 | PTCARENOTE ---
Patient arrived back to unit from PACU. Postop vitals initiated. Patient on 2LNC. Patient has knee immobilizer and postop dressing to right knee clean, dry, and intact. Venous foot pumps placed on patient. Tele monitor applied. Patient complains of
pain to right knee, otherwise in no acute distress. Call barney is within reach. Will continue to monitor.
[2023-08-22] MEDS: ASPIRIN 325 MG PO (19:46)
[2023-08-22] MEDS: COLACE 100 MG PO (19:46)
[2023-08-22] MEDS: FLOMAX 0.400000000000000022 MG PO (19:46)
[2023-08-22 21:17] LABS: Glucose - Point of Care 285 mg/dl (70-99)
[2023-08-22] MEDS: LANTUS 0.200000000000000011 UNITS SC (21:22)
--- NOTE | 2023-08-22 22:47 | OR.RPT ---
Operative Report
Operative Report
Orthopedic Surgery Operative Report
Date of Surgery: 08/22/23
PREOPERATIVE DIAGNOSES:
1. Right knee prepatellar bursitis
POSTOPERATIVE DIAGNOSES:
1. Right knee prepatellar bursitis
PROCEDURE PERFORMED:
1. Right knee prepatellar bursa incision and drainage with debridement and bursectomy
SURGEON: Megan Rodríguez D.O.
INSURANCE ACCOUNT ASSISTANT: LAURI Farmer, who helped with patient and limb positioning and retraction
ANESTHESIA: General
COMPLICATIONS: None
ESTIMATED BLOOD LOSS: 50 cc
DRAINS: None
SPECIMEN: None
IMPLANTS: None
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 He was diagnosed with prepatellar bursitis. His
symptoms began worsening and a decision was made to proceed with a right knee prepatellar bursa I&D. It was also noted that he is an uncontrolled diabetic with a recent A1c of greater than 10. The risks, benefits, alternatives, and indications were
discussed in detail. The risks include, but are not limited to bleeding requiring transfusion, infection, need for reoperation, nerve or blood vessel damage, anesthetic risks, need for further surgery, blood clots in the legs, heart attack, stroke,
, and continued pain. He understood the risks and elected to proceed.
PROCEDURE IN DETAIL: The patient was identified in the preoperative holding area. The surgical site was appropriately marked. The patient was then brought to the operating room. General anesthesia was achieved. Preoperative antibiotics were
held until cultures were obtained. The patient was then appropriately positioned on the operative table. The patient was prepped and draped in the usual sterile manner. A preoperative surgical time-out was taken and the procedure was initiated.
A midline incision was made over the right knee. Purulent fluid began erupting from the anterior knee right after making the incision. Culture swabs were obtained. The purulent fluid was evacuated. The wound site was then explored. Pockets of
purulence were present in the deeper layers of the subcutaneous tissue. Culture swabs were obtained from these pockets of purulence. Additionally, soft tissue samples were obtained and sent to pathology. After obtaining cultures, antibiotics were
infused. The pockets of purulence were found to be in confluence with a hypertrophic prepatellar bursa. These were thoroughly debrided. No communication to the knee joint was found to be present. The wound site was then thoroughly irrigated with
3 L of Betadine irrigation. Next, the wound was irrigated with normal saline. The wound was once again explored and debrided. A prepatellar bursectomy was performed. The wound was irrigated once again. No further purulence was found to be
present. The deep and superficial soft tissues were closed using PDS suture. The skin was closed using nylon suture. Sterile compressive dressing was applied. Patient tolerated the procedure well with no immediate complications.
Megan Rodríguez D.O.
Orthopedic Surgery
[2023-08-23] VITALS (8 sets, daily range): BP systolic 107–139; BP diastolic 64–79; PULSE 89; O2SAT 95
[2023-08-23] MEDS: DILAUDID 0.5 MG IV ×4 (02:09→20:18)
[2023-08-23] MEDS: FLUSH (NSS) 1 FLUSH IV (05:58)
[2023-08-23] MEDS: NSS 1000 IV (05:59)
[2023-08-23] MEDS: ANCEF 10 IV ×3 (06:00→22:48)
[2023-08-23] MEDS: ROXICODONE 10 MG PO (06:28)
[2023-08-23 06:47] LABS: % Basophils 0.3 % (0-2); % Immature Granulocytes 1.1 % (0-0.5); % Lymphocytes 5.1 % (20.5-51.1); % Monocytes 4.3 % (1.7-9.3); % Neutrophils 89.2 % (42.2-75.2); Absolute Basophils 0.1 10^3/uL (0-0.2); Absolute Immature Granulocytes 0.2 10^3/uL (0-0.05); Absolute Lymphocytes 1.1 10^3/uL (1.2-3.4); Absolute Monocytes 0.9 10^3/uL (0.1-0.6); Absolute Neutrophils 19.4 10^3/uL (1.4-6.5); Hematocrit 34.3 % (39.0-52.0); Hemoglobin 11.8 g/dL (13.0-18.0); Mean Corp Hgb Conc. 34.4 g/dL (33.0-37.0); Mean Corpuscular Hgb 28.6 pg (27.0-31.0); Mean Corpuscular Volume 83.1 fL (80.0-94.0); Mean Platelet Volume 9.9 fL (7.4-10.4); Nucleated Red Blood Cells % 0 % (-); Platelet Count 301 10^3/uL (130-400); Red Blood Cell Count 4.13 10^6/uL (4.70-6.10); White Blood Cell Count 21.8 10^3/uL (4.8-10.8)
[2023-08-23 07:25] LABS: Blood Urea Nitrogen 23 mg/dl (9-20); Carbon Dioxide 25 mmol/L (22-30); Chloride 98 mmol/L (98-107); Estimated Creatinine Clearance 106 ml/min; Glucose 298 mg/dl (70-99); Potassium 4.3 mmol/L (3.5-5.1); Sodium 133 mmol/L (135-145); eGFR > 60.00
[2023-08-23 07:32] LABS: Glucose - Point of Care 282 mg/dl (70-99)
[2023-08-23] MEDS: ASPIRIN 325 MG PO (08:22)
[2023-08-23] MEDS: NOVOLOG FLEXPEN-LOW RESISTANCE 3 UNITS SC ×3 (08:22→17:05)
[2023-08-23] MEDS: COLACE PO ×3 (08:22→20:17)
--- NOTE | 2023-08-23 08:55 | PN.CDI ---
CDI
- -
CDI:
Physician Documentation Request
Admit Date: 08/19/23 23:31
Dear Doctor Anne,
Please review the following and provide your response in the progress notes.
Clinical Indicators:
- 08/21 Operative Report 'Right knee prepatellar bursa incision and drainage with debridement and bursectomy'
- 'The wound was once again explored and debrided'
Could you provide, in the progress notes further clarification regarding the debridement.
Please specify the type of debridement performed:
1. Excisional Debridement - defined as removal by excision of devitalized tissue, necrosis or slough
2. Non-excisional debridement - defined as removal of devitalized tissue, necrosis or slough by such methods as irrigation, brushing, scrubbing or washing.
If the debridement was excisional, please also include:
1. Type of instrument used (#11 blade, #15 blade etc.)
2. What was excised (necrotic tissue, gangrenous tissue, slough etc.)
For excisional or non-excisional, please also include:
1. Depth of debridement (skin, subcutaneous tissue, fascia, muscle, bone etc)
2. Size and appearance of the wound (L, W, D, color of wound, drainage)
Use of terms such as suspected, likely, concern for, or probable (associated with a specific diagnosis that is being evaluated, monitored, or treated as if it exists) are acceptable and can be coded in the inpatient setting, when documented at the
time of discharge.
Thank you,
Chanel Viveros RN
CDI Specialist
Please use your independent medical judgment in providing your response.
--- NOTE | 2023-08-23 09:09 | W.PN.ID1 ---
Date of Service
Date of Service: August 23, 2023
Today's Communication
Continue antibiotics. Await cultures.
Assessment / Plan
Right knee pain and swelling.
RLE prepatellar bursitis
- S/P bursectomy
Leukocytosis
Fever
Elevated CRP
DM (uncontrolled; HbA1c = 10.6)
Hx nephrolithiasis
Recommendations:
S/P bursectomy
Continue with cefazolin.
Monitor white count and temperature curve.
Monitor pending cultures.
����������������������������������������������������������
Chief Complaint
-: Fever and Cellulitis
Subjective / Review of Systems
Patient seen and examined. Chart reviewed. Patient's status post OR and bursa I&D on 08/22/2023.
Review of Systems: No Fever and No Chills
Vital Signs / Physical Exam
Vital Signs
Vital Signs
Temp Pulse Resp BP Pulse Ox
98.2 F 75 16 119/73 93
08/23/23 07:59 08/23/23 07:59 08/23/23 07:59 08/23/23 07:59 08/23/23 07:59
Physical Exam
Constitutional: No Acute Distress, Comfortable and Non-toxic
Eyes: Sclera Anicteric
Pulmonary: Non Labored
Gastrointestinal: Soft, Non Tender and Non Distended
Wound: Other (Right knee dressed in Indra wrap and in immobilizer.)
Neurological: Awake and Alert
Psychological: Calm
Objective Data
Lab Data
Lab Results
08/23/23 06:30
08/23/23 06:30
ESR 18 mm/hour (0-20) 08/19/23 22:10
Estimated Creat Clear 106 ml/min 08/23/23 06:30
Lactic Acid Cancelled 08/20/23 02:00
Total Bilirubin 2.9 mg/dl (0.2-1.3) H 08/20/23 07:40
AST 30 U/L (17-59) 08/20/23 07:40
ALT 27 U/L (0-50) 08/20/23 07:40
Alkaline Phosphatase 77 U/L (38-126) 08/20/23 07:40
C-Reactive Protein 182.70 mg/L (0.0-10.00) H 08/23/23 06:30
Most recent labs reviewed.
Micro Results:
08/19/23 22:09 Blood Culture - Preliminary
Blood/Venous No Growth in 72 hours- Final report to follow
08/19/23 22:09 Blood Culture - Preliminary
Blood/Venous No Growth in 72 hours- Final report to follow
08/22/23 17:04 Wound Culture - Pending
Knee - Right Gram Stain - Preliminary
08/22/23 16:59 Wound Culture - Pending
Knee - Right Gram Stain - Preliminary
08/22/23 16:59 Fungal Culture - Preliminary
Knee - Right Culture in progress.
Positive cultures are reported as soon as detected.
Final report to follow in four to five weeks.
08/22/23 17:04 Fungal Culture - Preliminary
Knee - Right Culture in progress.
Positive cultures are reported as soon as detected.
Final report to follow in four to five weeks.
08/22/23 17:04 Anaerobic Culture - Pending
Knee - Right
08/22/23 16:59 Anaerobic Culture - Pending
Knee - Right
08/21/23 10:05 Wound Culture - Preliminary
Knee - Right No growth
Gram Stain - Preliminary
--- NOTE | 2023-08-23 09:46 | W.PN.HOSP.TC ---
Today's Communication/Plan
-
continue IV Ancef which he is tolerating
Assessment / Plan
Assessment / Plan
# Sepsis (fever, leukocytosis, tachycardia) likely secondary to prepatellar bursitis versus less likely septic arthritis of right knee
-X-ray: Degenerative changes with slight progression.
Prepatellar soft tissue prominence, nonspecific, possibly representing prepatellar bursitis.
-IV fluids stopped
WBC 26.4-->22.5-->19.4-->18.5-surgical intervention--21.8k
blood cultures NGTD
Gm stain: mod WBC, no organisms seen
-Lyme Negative
-Tylenol, Toradol, Dilaudid for pain as needed
- pt started on Ancef
- prophylactic aspirin resumed
POD#1 for Rt knee prepatellar bursa I&D with debridement and bursectomy with purulent fluid drained
# Right lower Skin burn
-Has been healing
Type 2 diabetes - poorly controlled, pt aware and reviewed with him
a1c 10.6%
-hold metformin
-Insulin sliding scale
added standing PM dose of Lantus, perioperatively was on D51/2NS to avoid hypoglycemia as was NPO. IVF will be stopped, he is awake and eating well
glu 190-266
History of kidney stones
-Continue tamsulosin
Full code
DVT prophylaxis�SCDs
pt now on ASA 325 mg, call placed to [facility] to ask about adding Lovenox vs mechanical device to rt leg, requested he check with surgeon and order his preference weighing risk benefit of each modality
Regular diabetic diet
discussed with Dr. Manrique
Anticipated Discharge: > 48 hours
Subjective/Interval History
-
Date of Service: August 23, 2023
In good spirits
Objective Data
-
Labs:
Laboratory Results
08/23/23
06:30
WBC 21.8 H
Hgb 11.8 L
Hct 34.3 L
Plt Count 301
Sodium 133 L
Potassium 4.3
Chloride 98
Carbon Dioxide 25
BUN 23 H
Creatinine 0.8
Glucose 298 H
Calcium 8.0 L
Vital Signs:
Vital Signs
Temp Pulse Resp BP Pulse Ox
98.2 F 75 16 119/73 93
08/23/23 07:59 08/23/23 07:59 08/23/23 07:59 08/23/23 07:59 08/23/23 07:59
I&O
08/22/23 08/23/23 08/24/23
06:59 06:59 06:59
Intake Total 870 / 870 120 / 120
Output Total 400 / 400
Balance 870 / 870 -280 / -280
Review of Systems
-
History Source: Patient and Coordinated Provider
Constitutional: Denies Fever (afebrile >24 hrs)
EENT: Reports No Symptoms Reported
Respiratory: Reports No Symptoms
Cardiac: Reports No Symptoms
Abdomen/GI: Reports No Symptoms
Musculoskeletal: Reports Joint Pain (post op rt knee)
Neuro: Reports No Symptoms
Physical Exam
-
General: Well Developed, Well Nourished and No Apparent Distress
HEENT: Normocephalic, Atraumatic and Moist Mucous Membranes
Respiratory: Clear to Auscultation; Negative Wheezes, Rales or Rhonchi
Cardiac: Regular Rhythm and S1/S2
GI: Soft, Nontender and Nondistended
Musculoskeletal: No Clubbing, No Cyanosis, No Edema and Other (rt knee covered)
Skin: Rash (rt knee covered)
Neuro: Awake, Alert and Oriented
--- NOTE | 2023-08-23 10:48 | CM ---
Patient seen, reports no needs to CM at this time. Patient remains on IV antibiotics. CM will continue to follow for discharge planning needs.
Plan; home no needs vs VN for home PT needs.
--- NOTE | 2023-08-23 11:18 | W.PN.ORTHO ---
Today's Communication / Plan
-
Continue antibiotics per ID recommendations. On cefazolin
Surgical Gram stain with gram-positive cocci, cultures pending
Trend CRP
Pain control
PT/OT
Weight-bear as tolerated right lower extremity
Glucose control due to history of uncontrolled diabetes (recent A1c>10). Appreciate IM recommendations
Will continue to follow
Assessment
.
Assessment:
Status post right prepatellar bursitis I&D, postop day 1
DM (recent A1C>10)
Plan
.
Activity:
Out of bed.
PT/OT
Subjective
.
.:
Patient resting comfortably in bed. Endorses some pain at the right knee. Has not ambulated thus far.
Vital Signs and Labs
.
Vital Signs and Labs:
Lab Results
08/23/23 06:30
08/23/23 06:30
Temp Pulse Resp BP Pulse Ox
99.4 F 65 16 116/67 95
08/23/23 10:47 08/23/23 10:47 08/23/23 10:47 08/23/23 10:47 08/23/23 10:47
Physical Exam
-
Right knee dressings C/D/I. Erythema present at anterior knee. TA/EHL/GSC intact motor. DP pulse 2+. Sensation intact at the right lower extremity grossly.
--- NOTE | 2023-08-23 11:27 | W.PN.UPDATE ---
Update Note
Progress Note Update
CDI update note:
Patient underwent excisional debridement during surgery. The debridement was performed using a #15 blade and rongeurs. hypertrophic prepatellar bursa tissue was excised. Skin and subcutaneous tissues in the prepatellar space were debrided.
Purulence was present in the wound which was drained and tissues were irrigated and debrided. There was no initial draining wound. An incision was made and underlying purulence was drained.
--- NOTE | 2023-08-23 11:47 | W.PN.UPDATE ---
Update Note
Progress Note Update
Dr Ambriz called because patient not moving much. Reviewed pain meds and appropriate medications ordered. Ok to use mechanical devices right leg and start Lovenox which I ordered. Discussed with Dr Rodríguez and he was ok with starting lovenox.
[2023-08-23 11:49] LABS: Glucose - Point of Care 277 mg/dl (70-99)
[2023-08-23 16:38] LABS: Glucose - Point of Care 290 mg/dl (70-99)
[2023-08-23] MEDS: LOVENOX 40 MG SC (17:06)
[2023-08-23] MEDS: FLOMAX 0.400000000000000022 MG PO (17:23)
[2023-08-23 22:46] LABS: Glucose - Point of Care 214 mg/dl (70-99)
[2023-08-23] MEDS: LANTUS 0.200000000000000011 UNITS SC (22:48)
[2023-08-24 03:28] VITALS: BP 107/67
[2023-08-24] MEDS: ANCEF 10 IV ×3 (05:51→21:47)
[2023-08-24 06:24] LABS: % Basophils 0.5 % (0-2); % Eosinophils 1.9 % (0-6); % Immature Granulocytes 2.1 % (0-0.5); % Lymphocytes 13.1 % (20.5-51.1); % Monocytes 5.4 % (1.7-9.3); Absolute Basophils 0.1 10^3/uL (0-0.2); Absolute Eosinophils 0.3 10^3/uL (0-0.7); Absolute Immature Granulocytes 0.3 10^3/uL (0-0.05); Absolute Monocytes 0.8 10^3/uL (0.1-0.6); Hematocrit 33.3 % (39.0-52.0); Hemoglobin 11.6 g/dL (13.0-18.0); Mean Corp Hgb Conc. 34.8 g/dL (33.0-37.0); Mean Corpuscular Hgb 28.5 pg (27.0-31.0); Mean Corpuscular Volume 81.8 fL (80.0-94.0); Mean Platelet Volume 9.6 fL (7.4-10.4); Nucleated Red Blood Cells % 0 % (-); Platelet Count 299 10^3/uL (130-400); Red Blood Cell Count 4.07 10^6/uL (4.70-6.10); Red Cell Dist. Width 13.1 % (11.5-14.5); White Blood Cell Count 15.6 10^3/uL (4.8-10.8)
[2023-08-24 06:55] LABS: Blood Urea Nitrogen 22 mg/dl (9-20); Calcium 7.9 mg/dl (8.4-10.2); Carbon Dioxide 31 mmol/L (22-30); Chloride 99 mmol/L (98-107); Estimated Creatinine Clearance 106 ml/min; Glucose 198 mg/dl (70-99); Potassium 3.9 mmol/L (3.5-5.1); Sodium 134 mmol/L (135-145); eGFR > 60.00
[2023-08-24 07:11] VITALS: BP 132/81
--- NOTE | 2023-08-24 07:19 | W.PN.ORTHO ---
Today's Communication / Plan
-
Continue antibiotics per ID recommendations. On cefazolin
Cultures positive for Strep pyogenes
Trend CRP. WBC and CRP downtrending
Pain control
PT/OT
Weight-bear as tolerated right lower extremity
Glucose control due to history of uncontrolled diabetes (recent A1c>10). Appreciate IM recommendations
Will continue to follow
Assessment
.
Assessment:
Status post right prepatellar bursitis I&D, postop day 2
DM (recent A1C>10)
Plan
.
Activity:
Out of bed.
PT/OT
Subjective
.
.:
Patient resting comfortably in bed. Endorses some pain at the right knee. Afebrile, VSS.
Vital Signs and Labs
.
Vital Signs and Labs:
Lab Results
08/24/23 05:59
08/24/23 05:59
Temp Pulse Resp BP Pulse Ox
98.6 F 85 16 107/67 91
08/24/23 03:28 08/24/23 03:28 08/24/23 03:28 08/24/23 03:28 08/24/23 03:28
Physical Exam
-
Right knee dressings changed. Erythema improved. Range of motion of knee decreased due to pain and anterior knee. TA/EHL/GSC intact motor. DP pulse 2+. Sensation intact at the right lower extremity grossly
[2023-08-24 08:08] LABS: Glucose - Point of Care 188 mg/dl (70-99)
[2023-08-24] MEDS: NOVOLOG FLEXPEN-LOW RESISTANCE 1 UNITS SC (08:21)
[2023-08-24] MEDS: COLACE PO ×2 (08:22→19:34)
[2023-08-24] MEDS: DILAUDID 0.5 MG IV ×2 (08:23→21:46)
--- NOTE | 2023-08-24 09:06 | W.PN.UPDATE ---
Update Note
Progress Note Update
Culures reviewed - group a strep
add linezolid x48 hrs
continue cefazolin
[2023-08-24] MEDS: ZYVOX 600 MG PO ×2 (11:03→21:46)
[2023-08-24] MEDS: ROXICODONE 5 MG PO (11:03)
[2023-08-24 11:44] LABS: Glucose - Point of Care 337 mg/dl (70-99)
[2023-08-24 11:46] VITALS: BP 129/74
[2023-08-24] MEDS: NOVOLOG FLEXPEN-LOW RESISTANCE 4 UNITS SC (12:33)
--- NOTE | 2023-08-24 14:31 | W.PN.HOSP.TC ---
Today's Communication/Plan
-
increase Lantus cautiously
Assessment / Plan
Assessment / Plan
# Sepsis (fever, leukocytosis, tachycardia) likely secondary to prepatellar bursitis versus less likely septic arthritis of right knee
-X-ray: Degenerative changes with slight progression.
Prepatellar soft tissue prominence, nonspecific, possibly representing prepatellar bursitis.
-IV fluids stopped
WBC 26.4-->22.5-->19.4-->18.5-surgical intervention--21.8-->15.6k
blood cultures NGTD
Gm stain: mod WBC, no organisms seen
-Lyme Negative
-Tylenol, Toradol, Dilaudid for pain as needed
- pt started on Ancef
- prophylactic aspirin resumed
POD#2 for Rt knee prepatellar bursa I&D with debridement and bursectomy with purulent fluid drained
# Right lower Skin burn
-Has been healing
Type 2 diabetes - poorly controlled, pt aware and reviewed with him
a1c 10.6%
-hold metformin
-Insulin sliding scale
added standing PM dose of Lantus, perioperatively was on D51/2NS to avoid hypoglycemia as was NPO. IVF will be stopped, he is awake and eating well
glu 190-266. With persistent elevated glu, will cautiously raise Lantus dose
History of kidney stones
-Continue tamsulosin
Full code
DVT prophylaxis�SCDs
pt now on ASA 325 mg, call placed to [facility] to ask about adding Lovenox vs mechanical device to rt leg, requested he check with surgeon and order his preference weighing risk benefit of each modality
Regular diabetic diet
discussed with Dr. Manrique 08/22
Anticipated Discharge: > 48 hours
Subjective/Interval History
-
Date of Service: August 24, 2023
In good spirits, looks better
Objective Data
-
Labs:
Laboratory Results
08/24/23
05:59
WBC 15.6 H
Hgb 11.6 L
Hct 33.3 L
Plt Count 299
Sodium 134 L
Potassium 3.9
Chloride 99
Carbon Dioxide 31 H
BUN 22 H
Creatinine 0.8
Glucose 198 H
Calcium 7.9 L
Vital Signs:
Vital Signs
Temp Pulse Resp BP Pulse Ox
97.8 F 78 18 129/74 95
08/24/23 11:46 08/24/23 11:46 08/24/23 11:46 08/24/23 11:46 08/24/23 11:46
I&O
08/23/23 08/24/23 08/25/23
06:59 06:59 06:59
Intake Total 120 / 120 720 / 720
Output Total 400 / 400 1175 / 1175
Balance -280 / -280 -455 / -455
Review of Systems
-
History Source: Patient and Coordinated Provider
Constitutional: Denies Fever (afebrile >24 hrs)
EENT: Reports No Symptoms Reported
Respiratory: Reports No Symptoms
Cardiac: Reports No Symptoms
Abdomen/GI: Reports No Symptoms
Musculoskeletal: Reports Joint Pain (post op rt knee)
Neuro: Reports No Symptoms
Physical Exam
-
General: Well Developed, Well Nourished and No Apparent Distress
HEENT: Normocephalic, Atraumatic and Moist Mucous Membranes
Respiratory: Clear to Auscultation; Negative Wheezes, Rales or Rhonchi
Cardiac: Regular Rhythm and S1/S2
GI: Soft, Nontender and Nondistended
Musculoskeletal: No Clubbing, No Cyanosis, No Edema and Other (rt knee covered)
Skin: Rash (redness and extensiveness of redness has lessened)
Neuro: Awake, Alert and Oriented
[2023-08-24 15:05] VITALS: BP 121/73
[2023-08-24] MEDS: ROXICODONE 10 MG PO (15:39)
[2023-08-24 15:50] LABS: Glucose - Point of Care 229 mg/dl (70-99)
[2023-08-24] MEDS: NOVOLOG FLEXPEN-LOW RESISTANCE 2 UNITS SC (16:57)
[2023-08-24] MEDS: FLOMAX 0.400000000000000022 MG PO (17:00)
[2023-08-24] MEDS: LOVENOX 40 MG SC (17:00)
[2023-08-24 19:30] VITALS: BP 127/78
[2023-08-24 21:46] LABS: Glucose - Point of Care 221 mg/dl (70-99)
[2023-08-24] MEDS: LANTUS 0.299999999999999989 UNITS SC (21:47)
[2023-08-24 23:50] VITALS: BP 119/78
[2023-08-25 03:51] VITALS: BP 121/81
[2023-08-25] MEDS: ANCEF 10 IV ×3 (05:25→22:59)
[2023-08-25] MEDS: ROXICODONE 10 MG PO ×2 (05:28→10:06)
[2023-08-25 07:00] VITALS: BP 132/81
[2023-08-25 07:02] LABS: % Basophils 0.6 % (0-2); % Eosinophils 3.7 % (0-6); % Immature Granulocytes 4.3 % (0-0.5); % Lymphocytes 16.9 % (20.5-51.1); % Monocytes 7.7 % (1.7-9.3); % Neutrophils 66.8 % (42.2-75.2); Absolute Basophils 0.1 10^3/uL (0-0.2); Absolute Eosinophils 0.5 10^3/uL (0-0.7); Absolute Immature Granulocytes 0.6 10^3/uL (0-0.05); Absolute Lymphocytes 2.3 10^3/uL (1.2-3.4); Absolute Neutrophils 8.9 10^3/uL (1.4-6.5); Hematocrit 33.8 % (39.0-52.0); Hemoglobin 11.7 g/dL (13.0-18.0); Mean Corp Hgb Conc. 34.6 g/dL (33.0-37.0); Mean Corpuscular Hgb 28.5 pg (27.0-31.0); Mean Corpuscular Volume 82.4 fL (80.0-94.0); Mean Platelet Volume 9.7 fL (7.4-10.4); Nucleated Red Blood Cells % 0 % (-); Platelet Count 305 10^3/uL (130-400); Red Cell Dist. Width 12.9 % (11.5-14.5); White Blood Cell Count 13.3 10^3/uL (4.8-10.8)
[2023-08-25 07:53] LABS: Blood Urea Nitrogen 14 mg/dl (9-20); Calcium 8.2 mg/dl (8.4-10.2); Carbon Dioxide 27 mmol/L (22-30); Chloride 99 mmol/L (98-107); Estimated Creatinine Clearance 121 ml/min; Glucose 173 mg/dl (70-99); Potassium 3.8 mmol/L (3.5-5.1); Sodium 134 mmol/L (135-145); eGFR > 60.00
[2023-08-25 08:07] LABS: Glucose - Point of Care 167 mg/dl (70-99)
[2023-08-25] MEDS: ZYVOX 600 MG PO ×2 (08:17→22:58)
[2023-08-25] MEDS: NOVOLOG FLEXPEN-LOW RESISTANCE 1 UNITS SC ×3 (08:17→17:24)
[2023-08-25] MEDS: COLACE PO (08:31)
--- NOTE | 2023-08-25 10:35 | W.PN.UPDATE ---
Update Note
Progress Note Update
Mr. Carter is postop day 3 following his right knee prepatellar bursa incision and drainage with debridement bursectomy performed by Dr. Rodríguez. He is resting comfortably in his chair this morning. He was walking the floor prior to my visit with
him. He reports his symptoms continue to gradually improve with time. He does endorse increased pain with activity.
Dressing clean, dry and intact. Surgical incision well approximated with sutures. No active drainage or bleeding. Hue of erythema about the anterior knee. Calf soft and nontender. Neurovascularly intact distally.
Cultures growing Strep pyogenes.
CRP 61.4 this AM from 74.4 yesterday.
58 yo M POD3 right prepatellar bursa I&D under the direction of Dr. Rodríguez
--Cultures positive for Strp pyogenes. Continue antibiotics per ID recommendations. Currently cefaozlin and linezolid.
--Trend CRP. WBC and CRP downtrending
--Pain control
--we appreciate the assistnace of PT/OT. Weight-bear as tolerated right lower extremity.
--Glucose control due to history of uncontrolled diabetes (recent A1c>10). Appreciate IM recommendations
--Will continue to follow
[2023-08-25 11:04] VITALS: BP 127/82
[2023-08-25 11:55] LABS: Glucose - Point of Care 167 mg/dl (70-99)
--- NOTE | 2023-08-25 14:17 | W.PN.HOSP.TC ---
Today's Communication/Plan
-
abx as per ID
continue Lantus 30 units qPM
follow glu
Assessment / Plan
Assessment / Plan
# Sepsis (fever, leukocytosis, tachycardia) likely secondary to prepatellar bursitis versus less likely septic arthritis of right knee
-X-ray: Degenerative changes with slight progression.
Prepatellar soft tissue prominence, nonspecific, possibly representing prepatellar bursitis.
-IV fluids stopped
WBC 26.4-->22.5-->19.4-->18.5-surgical intervention--21.8-->15.6-->13.3k
blood cultures NGTD
Wound culture Gm stain: mod WBC, Strep pyogenes
-Lyme Negative
-Tylenol, Toradol, Dilaudid for pain as needed
- pt started on Ancef and Linezolid added by ID
- prophylactic aspirin resumed
POD#3 for Rt knee prepatellar bursa I&D with debridement and bursectomy with purulent fluid drained
CRP 223-->183-->74-->61
# Right lower Skin burn
-Has been healing
Type 2 diabetes - poorly controlled, pt aware and reviewed with him
a1c 10.6%
-hold metformin
-Insulin sliding scale
added standing PM dose of Lantus
glu 167-229. With persistent elevated glu, cautiously raised Lantus dose to 30 units
would consult [employer] tomorrow
History of kidney stones
-Continue tamsulosin
Full code
DVT prophylaxis�SCDs
pt now on ASA 325 mg, call placed to [facility], to ask about adding Lovenox which has been ordered
Regular diabetic diet
discussed with Dr. Manrique 08/22
Anticipated Discharge: > 48 hours
Subjective/Interval History
-
Date of Service: August 25, 2023
Knee is feeling better
Objective Data
-
Labs:
Laboratory Results
08/25/23
06:13
WBC 13.3 H
Hgb 11.7 L
Hct 33.8 L
Plt Count 305
Sodium 134 L
Potassium 3.8
Chloride 99
Carbon Dioxide 27
BUN 14
Creatinine 0.7
Glucose 173 H
Calcium 8.2 L
Vital Signs:
Vital Signs
Temp Pulse Resp BP Pulse Ox
98.4 F 73 14 127/82 96
08/25/23 11:04 08/25/23 11:04 08/25/23 11:04 08/25/23 11:04 08/25/23 11:04
I&O
08/24/23 08/25/23 08/26/23
06:59 06:59 06:59
Intake Total 720 / 720 700 / 700
Output Total 1175 / 1175
Balance -455 / -455 700 / 700
Review of Systems
-
History Source: Patient and Coordinated Provider
Constitutional: Denies Fever (afebrile >24 hrs)
EENT: Reports No Symptoms Reported
Respiratory: Reports No Symptoms
Cardiac: Reports No Symptoms
Abdomen/GI: Reports No Symptoms
Musculoskeletal: Reports Joint Pain (post op rt knee)
Neuro: Reports No Symptoms
Physical Exam
-
General: Well Developed, Well Nourished and No Apparent Distress
HEENT: Normocephalic, Atraumatic and Moist Mucous Membranes
Respiratory: Clear to Auscultation; Negative Wheezes, Rales or Rhonchi
Cardiac: Regular Rhythm and S1/S2
GI: Soft, Nontender and Nondistended
Musculoskeletal: No Clubbing, No Cyanosis, No Edema and Other (rt knee covered)
Skin: Rash (redness and extensiveness of redness has lessened)
Neuro: Awake, Alert and Oriented
[2023-08-25 15:08] VITALS: BP 128/73
[2023-08-25 16:31] LABS: Glucose - Point of Care 193 mg/dl (70-99)
[2023-08-25] MEDS: FLOMAX 0.400000000000000022 MG PO (17:24)
[2023-08-25] MEDS: ROXICODONE 5 MG PO ×2 (17:24→23:14)
[2023-08-25] MEDS: LOVENOX SC (17:32)
[2023-08-25 21:23] LABS: Glucose - Point of Care 177 mg/dl (70-99)
[2023-08-25] MEDS: LANTUS 0.299999999999999989 UNITS SC (22:58)
[2023-08-25] MEDS: FLUSH (NSS) 2 FLUSH IV (22:59)
[2023-08-25 23:53] VITALS: BP 141/76
[2023-08-26 05:18] LABS: % Basophils 0.7 % (0-2); % Eosinophils 3.7 % (0-6); % Immature Granulocytes 5.2 % (0-0.5); % Lymphocytes 17.8 % (20.5-51.1); % Monocytes 7.7 % (1.7-9.3); % Neutrophils 64.9 % (42.2-75.2); Absolute Basophils 0.1 10^3/uL (0-0.2); Absolute Eosinophils 0.5 10^3/uL (0-0.7); Absolute Immature Granulocytes 0.7 10^3/uL (0-0.05); Absolute Lymphocytes 2.4 10^3/uL (1.2-3.4); Absolute Neutrophils 8.6 10^3/uL (1.4-6.5); Hematocrit 33.7 % (39.0-52.0); Hemoglobin 11.7 g/dL (13.0-18.0); Mean Corp Hgb Conc. 34.7 g/dL (33.0-37.0); Mean Corpuscular Hgb 28.5 pg (27.0-31.0); Mean Corpuscular Volume 82.2 fL (80.0-94.0); Mean Platelet Volume 9.3 fL (7.4-10.4); Nucleated Red Blood Cells % 0 % (-); Platelet Count 319 10^3/uL (130-400); Red Cell Dist. Width 12.7 % (11.5-14.5); White Blood Cell Count 13.2 10^3/uL (4.8-10.8)
[2023-08-26] MEDS: ROXICODONE 5 MG PO (05:56)
[2023-08-26] MEDS: ANCEF 10 IV ×3 (05:57→21:52)
[2023-08-26] MEDS: FLUSH (NSS) 2 FLUSH IV ×2 (05:58→21:53)
[2023-08-26 07:00] VITALS: BP 130/79
--- NOTE | 2023-08-26 07:44 | W.PN.UPDATE ---
Update Note
Progress Note Update
Mr. Carter is postop day 4 following his right knee prepatellar bursa incision and drainage with debridement bursectomy performed by Dr. Rodríguez. He is resting comfortably in bed this morning. He reports his symptoms continue to gradually improve
with time. He does report pain and stiffness this morning and thinks he may have overdone his activity yesterday. He walked multiple laps on the floor throughout the day.
Dressing clean, dry and intact. Surgical incision well approximated with sutures. No active drainage or bleeding. Hue of erythema about the anterior knee. Calf soft and nontender. Neurovascularly intact distally.
Cultures growing Strep pyogenes.
CRP 48.6 this AM from 61.4 yesterday.
WBC 13.2 this AM
58 yo M POD4 right prepatellar bursa I&D under the direction of Dr. Rodríguez
--Cultures positive for Strep pyogenes. Continue antibiotics per ID recommendations. Currently cefaozlin and linezolid.
--Trend CRP. WBC and CRP downtrending
--Pain control
--we appreciate the assistnace of PT/OT. Weight-bear as tolerated right lower extremity.
--Glucose control due to history of uncontrolled diabetes (recent A1c>10). Appreciate IM recommendations
--Will continue to follow
--Case management consult for discharge planning
[2023-08-26 07:50] LABS: Glucose - Point of Care 138 mg/dl (70-99)
[2023-08-26] MEDS: NOVOLOG FLEXPEN-LOW RESISTANCE SC ×2 (08:10→17:57)
[2023-08-26 08:45] LABS: Glucose - Point of Care 178 mg/dl (70-99)
[2023-08-26] MEDS: ZYVOX 600 MG PO (08:52)
--- NOTE | 2023-08-26 10:34 | W.PN.HOSP.TC ---
Today's Communication/Plan
-
F/U abx plan ID
Assessment / Plan
Assessment / Plan
Right Knee Prepatellar Bursitis
# Sepsis (fever, leukocytosis, tachycardia) secondary to prepatellar bursitis
blood cultures NGTD
-appreciate ortho consult; s/p r Rt knee prepatellar bursa I&D with debridement and bursectomy with purulent fluid drained; POD 4
-wound culture growing strep Pyogenes
-IV Cefazolin; Linezolid per ID
-Lyme Negative
-pain control
-PT/OT
# Right lower Skin burn
-Has been healing
Type 2 diabetes - poorly controlled, pt aware and reviewed with him
a1c 10.6%
-hold metformin
-Insulin sliding scale
-new start Lantus this admission
-HE[employer] JOB [employer]IT[employer] DM consult
History of kidney stones
-Continue tamsulosin
Full code
DVT prophylaxis�lovenox subQ
Anticipated Discharge: 24 - 48 hours
Subjective/Interval History
-
Date of Service: August 26, 2023
feeling better
right knee remains swollen but improving
pain improving
Objective Data
-
Labs:
Laboratory Results
08/26/23
04:48
WBC 13.2 H
Hgb 11.7 L
Hct 33.7 L
Plt Count 319
Vital Signs:
Vital Signs
Temp Pulse Resp BP Pulse Ox
97.8 F 69 18 130/79 97
08/26/23 07:00 08/26/23 07:00 08/26/23 07:00 08/26/23 07:00 08/26/23 08:00
I&O
08/25/23 08/26/23 08/27/23
06:59 06:59 06:59
Intake Total 700 / 700 1200 / 1200
Balance 700 / 700 1200 / 1200
Review of Systems
-
History Source: Patient
All other systems: Reviewed and negative
Physical Exam
-
General: No Apparent Distress
HEENT: PERRLA
Respiratory: Clear to Auscultation; Negative Wheezes
Cardiac: S1/S2
GI: Soft and Nontender
Musculoskeletal: No Edema
Skin: Warm and Dry; Negative Rash
Neuro: AO x 3
Psych: Calm
Data Reviewed
-
Diagnostic Radiology: Report Reviewed by me
Labs: Labs Reviewed by me
--- NOTE | 2023-08-26 10:53 | PTOTSP ---
Observed pt ambulating independently in hallway with RW. He reports ambulating multiple laps already and practiced step yesterday. No longer requiring knee immobilizer. PT will sign off. May need RW at discharge. Would need script so one can be
issued to him. Notify PT department to issue on day of discharge. Recommend outpatient PT when cleared by ortho.
--- NOTE | 2023-08-26 11:10 | PN.DE.MGMTRT ---
Insulin Management
- -
08/26/2023: Diabetes Management Consult
58-year-old male with PMH of kidney stones adn T2DM. Pt admitted on 08/18 with right knee pain, swelling, redness and Sepsis due to Right Knee Prepatellar Bursitis. Noted for Hyperglycemia on admission. A1C of 10.6%, Cr 0.8, eGFR >60. Pt was taking
Metformin 500mg BID prior to admission.
He was started on Lantus 20 units at HS that was increased to 30 units due to persistent Hyperglycemia.
Pt Awake, Alert, oriented x3, sitting up in chair, offers no complaints and is able to participate in discussion regarding diabetes plan of care.
Premeal glucose has remained out of range, 138 to 290 and HS glucose range is 177 to 221.
Will start Glipizide 2.5mg BID, 1st dose now. Will Resume Metformin at increased dose of 1000mg BID, 1st dose now.
Cont Lantus 30 units @ HS and low corrective insulin with meals.
Will closely monitor premeal glucose levels and consider starting AC NovoLog if necessary.
Pt was provided with instructions for insulin self administration.
Diabetes History
- -
Type of Diabetes: 2 requiring insulin
Pre-Admission Diabetes Regimen
Lab Results
Hemoglobin A1c 10.6 % (4.0-5.6) H 08/20/23 07:40
Insulin Pump Settings
IP Diabetes Regimen
08/25/23 08/25/23 08/25/23
11:53 16:29 21:20
POC Glucose 167 H 193 H 177 H
08/26/23 08/26/23
07:49 08:44
POC Glucose 138 H 178 H
Meal type: Lunch
Amount consumed: 75%
Patient Education
[2023-08-26] MEDS: ROXICODONE 10 MG PO ×2 (11:19→17:56)
[2023-08-26 11:25] LABS: Glucose - Point of Care 201 mg/dl (70-99)
[2023-08-26] MEDS: GLUCOTROL 2.5 MG PO ×2 (11:40→17:58)
[2023-08-26] MEDS: GLUCOPHAGE 1000 MG PO ×2 (11:40→17:58)
[2023-08-26] MEDS: NOVOLOG FLEXPEN-LOW RESISTANCE 2 UNITS SC (11:41)
[2023-08-26 15:00] VITALS: BP 129/76
--- NOTE | 2023-08-26 15:26 | CM ---
Patient seen bedside, offered VN to patient upon discharge. Patient declining, reports he would like a walker upon discharge. CM will reach out to PT and Hospitalist for script upon discharge. CM will continue to follow for discharge planning needs.
Plan; home no needs, will need walker upon discharge.
--- NOTE | 2023-08-26 16:30 | W.PN.ID1 ---
Date of Service
Date of Service: August 26, 2023
Today's Communication
Continue abx.
Assessment / Plan
RLE prepatellar bursitis
- S/P bursectomy
Leukocytosis
Fever
Elevated CRP
DM (uncontrolled; HbA1c = 10.6)
Hx nephrolithiasis
Recommendations:
S/P bursectomy
Continue with cefazolin.
Monitor white count and temperature curve.
Given extent of infection, would likely benefit from course of IV abx for additional 14 days, possibly followed by oral abx. Script for cafazolin placed on paper chart.
����������������������������������������������������������
Chief Complaint
-: Fever and Cellulitis
Subjective / Review of Systems
Review of Systems: No Fever
Vital Signs / Physical Exam
Vital Signs
Vital Signs
Temp Pulse Resp BP Pulse Ox
97.8 F 69 18 130/79 97
08/26/23 07:00 08/26/23 07:00 08/26/23 07:00 08/26/23 07:00 08/26/23 08:00
Physical Exam
Constitutional: No Acute Distress, Comfortable and Non-toxic
Pulmonary: Non Labored
Gastrointestinal: Non Distended
Extremities: Edema (right leg) and Erythema (mild; right knee area)
Wound: Other (right knee incision dressed.)
Neurological: Awake
Psychological: Calm
Objective Data
Lab Data
Lab Results
08/26/23 04:48
08/25/23 06:13
ESR 18 mm/hour (0-20) 08/19/23 22:10
Estimated Creat Clear 121 ml/min 08/25/23 06:13
Lactic Acid Cancelled 08/20/23 02:00
Total Bilirubin 2.9 mg/dl (0.2-1.3) H 08/20/23 07:40
AST 30 U/L (17-59) 08/20/23 07:40
ALT 27 U/L (0-50) 08/20/23 07:40
Alkaline Phosphatase 77 U/L (38-126) 08/20/23 07:40
C-Reactive Protein 48.60 mg/L (0.0-10.00) H 08/26/23 04:48
Most recent labs reviewed.
Micro Results:
08/22/23 17:04 Fungal Culture - Preliminary
Knee - Right Culture in progress.
Positive cultures are reported as soon as detected.
Final report to follow in four to five weeks.
08/22/23 16:59 Fungal Culture - Preliminary
Knee - Right Culture in progress.
Positive cultures are reported as soon as detected.
Final report to follow in four to five weeks.
08/22/23 17:04 Anaerobic Culture - Preliminary
Knee - Right NO ANAEROBES ISOLATED
08/22/23 16:59 Anaerobic Culture - Preliminary
Knee - Right NO ANAEROBES ISOLATED
08/19/23 22:09 Blood Culture - Final
Blood/Venous No Growth - Final Report
08/19/23 22:09 Blood Culture - Final
Blood/Venous No Growth - Final Report
08/21/23 10:05 Wound Culture - Final
Knee - Right No growth
Gram Stain - Final
08/22/23 16:59 Wound Culture - Preliminary
Knee - Right Streptococcus pyogenes
Gram Stain - Preliminary
08/22/23 17:04 Wound Culture - Preliminary
Knee - Right Streptococcus pyogenes
Gram Stain - Preliminary
[2023-08-26 17:10] LABS: Glucose - Point of Care 108 mg/dl (70-99)
--- NOTE | 2023-08-26 17:35 | PN.DE ---
Diabetes Education
- -
Met with Mr. Albarran for insulin instructions, A1C 10.6%. Pt was offered meter instructions and he declined stating that he has a CGM-Nancy 3.
Pt was made aware of significance of high A1C in relation to uncontrolled diabetes and predatory animal exterminator complications.
Discussed action of long acting insulin as well as symptoms and treatment of hypoglycemia, as he will be discharged on long acting basal insulin- Lantus at bedtime. Instructions on set up of insulin pen given with good return demonstration. Reginaldo
is aware to check blood sugar before breakfast and bedtime and inject long acting insulin in abdomen or outer thigh, rotating sites. He was also made aware to store insulin pens that are not in use in the refrigerator. Discussed importance of
checking blood sugar 2x/day to assess food/medication effect on his BS and to know the effect of the basal insulin on his blood sugars overnight, Pt verbalized understanding.
Provided information and handout on outpt education classes
Pt will need RX at discharge for basal insulins as well as insulin pen needles.
Updates given to pt's Nurse
[2023-08-26] MEDS: LOVENOX 40 MG SC (17:58)
[2023-08-26] MEDS: FLOMAX 0.400000000000000022 MG PO (17:58)
[2023-08-26 21:36] LABS: Glucose - Point of Care 133 mg/dl (70-99)
[2023-08-26] MEDS: LANTUS 0.299999999999999989 UNITS SC (21:53)
[2023-08-26 23:20] VITALS: BP 138/78
[2023-08-27 05:32] LABS: % Basophils 0.9 % (0-2); % Immature Granulocytes 4.8 % (0-0.5); % Lymphocytes 15.8 % (20.5-51.1); % Monocytes 7.5 % (1.7-9.3); Absolute Basophils 0.1 10^3/uL (0-0.2); Absolute Eosinophils 0.4 10^3/uL (0-0.7); Absolute Immature Granulocytes 0.6 10^3/uL (0-0.05); Absolute Lymphocytes 1.9 10^3/uL (1.2-3.4); Absolute Monocytes 0.9 10^3/uL (0.1-0.6); Absolute Neutrophils 8.3 10^3/uL (1.4-6.5); Hematocrit 35.6 % (39.0-52.0); Hemoglobin 12.2 g/dL (13.0-18.0); Mean Corp Hgb Conc. 34.3 g/dL (33.0-37.0); Mean Corpuscular Hgb 28.6 pg (27.0-31.0); Mean Corpuscular Volume 83.6 fL (80.0-94.0); Mean Platelet Volume 9.3 fL (7.4-10.4); Nucleated Red Blood Cells % 0 % (-); Platelet Count 341 10^3/uL (130-400); Red Blood Cell Count 4.26 10^6/uL (4.70-6.10); Red Cell Dist. Width 12.9 % (11.5-14.5); White Blood Cell Count 12.2 10^3/uL (4.8-10.8)
[2023-08-27] MEDS: FLUSH (NSS) 2 FLUSH IV (05:39)
[2023-08-27] MEDS: ANCEF 10 IV ×3 (05:39→21:13)
[2023-08-27 06:11] LABS: Blood Urea Nitrogen 16 mg/dl (9-20); Calcium 8.8 mg/dl (8.4-10.2); Carbon Dioxide 30 mmol/L (22-30); Chloride 100 mmol/L (98-107); Estimated Creatinine Clearance 106 ml/min; Glucose 76 mg/dl (70-99); Magnesium 2.1 mg/dl (1.6-2.3); Potassium 4.2 mmol/L (3.5-5.1); Sodium 135 mmol/L (135-145); eGFR > 60.00
[2023-08-27 07:31] LABS: Glucose - Point of Care 78 mg/dl (70-99)
[2023-08-27] MEDS: NOVOLOG FLEXPEN-LOW RESISTANCE SC ×3 (07:33→16:50)
--- NOTE | 2023-08-27 07:49 | W.PN.UPDATE ---
Update Note
Progress Note Update
Mr. Carter is postop day 5 following his right knee prepatellar bursa incision and drainage with debridement bursectomy performed by Dr. Rodríguez. He is resting comfortably in bed this morning. He reports his symptoms continue to gradually improve
each day. He did not take any pain medications overnight and therefore does endorse some pain this morning. He has been able to slowly tolerate more activity and has been walking around the floor.
Dressing clean, dry and intact. Surgical incision well approximated with sutures. No active drainage or bleeding. Hue of erythema about the anterior knee. Calf soft and nontender. Neurovascularly intact distally.
Cultures growing Strep pyogenes.
CRP 35.4 this AM from 48.6 yesterday.
WBC 12.2 this AM
58 yo M POD5 right prepatellar bursa I&D under the direction of Dr. Rodríguez
--Cultures positive for Strep pyogenes. Continue antibiotics per ID recommendations. Currently cefaozlin. Looks like plan on discharge is two weeks IV antibiotics followed by oral
--Trend CRP. WBC and CRP downtrending
--Pain control
--we appreciate the assistnace of PT/OT. Weight-bear as tolerated right lower extremity.
--Glucose control due to history of uncontrolled diabetes (recent A1c>10). Appreciate IM recommendations
--Will continue to follow
--Case management consult for discharge planning
[2023-08-27 07:55] VITALS: BP 124/73
--- NOTE | 2023-08-27 08:22 | PN.DE.MGMTRT ---
Insulin Management
- -
08/26/2023: Diabetes Management Consult
58-year-old male with PMH of kidney stones adn T2DM. Pt admitted on 08/18 with right knee pain, swelling, redness and Sepsis due to Right Knee Prepatellar Bursitis. Noted for Hyperglycemia on admission. A1C of 10.6%, Cr 0.8, eGFR >60. Pt was taking
Metformin 500mg BID prior to admission.
He was started on Lantus 20 units at HS that was increased to 30 units due to persistent Hyperglycemia.
POD#5 s/p r Rt knee prepatellar bursa I&D and bursectomy with purulent fluid drained.
Pt Awake, A/O x3, sitting up in chair, states he is getting PICC line placed today. Able to participate in discussion regarding diabetes plan of care.
Glucose has significantly improved. Premeal range 78 to 108 since start of Metformin and low dose glipizide, FBG 76 this am.
Will reduce Lantus to 28 units @ HS. Cont Glipizide 2.5mg BID, and Metformin 1000mg BID.
Pt has CGM-Nancy in place. He was provided with instructions for insulin self administration along with sheet of detailed step by step set up and injection site selection and rotation.
Diabetes History
- -
Type of Diabetes: 2 requiring insulin
Pre-Admission Diabetes Regimen
08/27/23
04:52
Creatinine 0.8
Lab Results
Hemoglobin A1c 10.6 % (4.0-5.6) H 08/20/23 07:40
Insulin Pump Settings
IP Diabetes Regimen
08/26/23 08/26/23 08/26/23
08:44 11:23 17:08
Glucose
POC Glucose 178 H 201 H 108 H
08/26/23 08/27/23 08/27/23
21:35 04:52 07:29
Glucose 76
POC Glucose 133 H 78
Meal type: Lunch
Amount consumed: 100%
Patient Education
[2023-08-27] MEDS: ROXICODONE 10 MG PO ×4 (08:48→23:44)
[2023-08-27] MEDS: GLUCOPHAGE 1000 MG PO ×2 (08:49→17:48)
[2023-08-27] MEDS: GLUCOTROL 2.5 MG PO ×2 (08:49→17:49)
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
[2023-08-27 12:05] LABS: Glucose - Point of Care 123 mg/dl (70-99)
--- NOTE | 2023-08-27 15:03 | CM ---
Addendum entered by Jessy Nicholas 08/27/23 16:00:
Call from spouse requesting update and details of dc planning
Update provided and requested to be part of the abx teaching
Not available until after work tomorrow at around 3:30pm
Coordination with [facility]
Plan for pt to receive afternoon dose of abx and then dc home
[facility] will send nurse to home in evening for med delivery and medication teaching
in agreement with plan
Update to Dr Harrison/TT
Original Note:
CM reviewed pt with Dr Harrison- ADC tomorrow
Will need IV abx on dc- Cefazolin IV Q8H
Bedside meeting to review- providers discussed
Referrals to [facility] and [facility]
Pt accepted for service by both
$500/deductible
$4000/out of pocket
80% coverage until out of pocket/100% coverage after out of pocket
Update to pt bedside
Plan to follow up with [facility] tomorrow on bedside teaching vs home teaching post dc tomorrow
[facility] confirmed midline can be utilized
TT/VAT Min
Will likely need WW issued on dc
Discharge Disposition- home with [facility] and [facility] and new WW
[facility] fax- [phone]
[2023-08-27 15:55] VITALS: BP 132/84
--- NOTE | 2023-08-27 16:15 | W.PN.ID1 ---
Date of Service
Date of Service: August 27, 2023
Today's Communication
Continue abx.
Assessment / Plan
RLE prepatellar bursitis
- S/P bursectomy
Leukocytosis
Fever
Elevated CRP
DM (uncontrolled; HbA1c = 10.6)
Hx nephrolithiasis
Recommendations:
S/P bursectomy
Continue with cefazolin.
Monitor white count and temperature curve.
Given extent of infection, would likely benefit from course of IV abx for additional 14 days, possibly followed by oral abx. Script for cafazolin placed on paper chart.
Will follow-up in office
����������������������������������������������������������
Chief Complaint
-: Fever and Cellulitis
Subjective / Review of Systems
Review of Systems: No Fever and No Chills
Vital Signs / Physical Exam
Vital Signs
Vital Signs
Temp Pulse Resp BP Pulse Ox
98.1 F 81 16 132/84 96
08/27/23 15:55 08/27/23 15:55 08/27/23 15:55 08/27/23 15:55 08/27/23 15:55
Physical Exam
Constitutional: No Acute Distress, Comfortable and Non-toxic
Eyes: Sclera Anicteric
Pulmonary: Non Labored
Extremities: Edema (mild) and Erythema (prepatellar area); Negative Cyanosis
Neurological: Awake and Alert
Psychological: Calm
Objective Data
Lab Data
Lab Results
08/27/23 04:52
08/27/23 04:52
ESR 18 mm/hour (0-20) 08/19/23 22:10
Estimated Creat Clear 106 ml/min 08/27/23 04:52
Lactic Acid Cancelled 08/20/23 02:00
Total Bilirubin 2.9 mg/dl (0.2-1.3) H 08/20/23 07:40
AST 30 U/L (17-59) 08/20/23 07:40
ALT 27 U/L (0-50) 08/20/23 07:40
Alkaline Phosphatase 77 U/L (38-126) 08/20/23 07:40
C-Reactive Protein 35.40 mg/L (0.0-10.00) H 08/27/23 04:52
Most recent labs reviewed.
Micro Results:
08/22/23 16:59 Wound Culture - Final
Knee - Right Streptococcus pyogenes
Gram Stain - Final
08/22/23 17:04 Wound Culture - Final
Knee - Right Streptococcus pyogenes
Gram Stain - Final
08/22/23 16:59 Anaerobic Culture - Final
Knee - Right NO ANAEROBES ISOLATED
08/22/23 17:04 Anaerobic Culture - Final
Knee - Right NO ANAEROBES ISOLATED
08/22/23 17:04 Fungal Culture - Preliminary
Knee - Right Culture in progress.
Positive cultures are reported as soon as detected.
Final report to follow in four to five weeks.
08/22/23 16:59 Fungal Culture - Preliminary
Knee - Right Culture in progress.
Positive cultures are reported as soon as detected.
Final report to follow in four to five weeks.
08/19/23 22:09 Blood Culture - Final
Blood/Venous No Growth - Final Report
08/19/23 22:09 Blood Culture - Final
Blood/Venous No Growth - Final Report
08/21/23 10:05 Wound Culture - Final
Knee - Right No growth
Gram Stain - Final
[2023-08-27 16:49] LABS: Glucose - Point of Care 127 mg/dl (70-99)
[2023-08-27] MEDS: FLOMAX 0.400000000000000022 MG PO (17:48)
[2023-08-27] MEDS: LOVENOX 40 MG SC (17:49)
[2023-08-27 21:11] LABS: Glucose - Point of Care 122 mg/dl (70-99)
[2023-08-27] MEDS: LANTUS 0.280000000000000027 UNITS SC (21:12)
[2023-08-27 23:42] VITALS: BP 120/84
[2023-08-28] MEDS: ANCEF 10 IV ×2 (05:25→14:37)
[2023-08-28 05:41] LABS: % Basophils 0.6 % (0-2); % Eosinophils 2.7 % (0-6); % Immature Granulocytes 1.8 % (0-0.5); % Lymphocytes 19.6 % (20.5-51.1); % Monocytes 7.6 % (1.7-9.3); % Neutrophils 67.7 % (42.2-75.2); Absolute Basophils 0.1 10^3/uL (0-0.2); Absolute Eosinophils 0.3 10^3/uL (0-0.7); Absolute Immature Granulocytes 0.2 10^3/uL (0-0.05); Absolute Lymphocytes 2.2 10^3/uL (1.2-3.4); Absolute Monocytes 0.8 10^3/uL (0.1-0.6); Absolute Neutrophils 7.5 10^3/uL (1.4-6.5); Hematocrit 35.9 % (39.0-52.0); Hemoglobin 11.9 g/dL (13.0-18.0); Mean Corp Hgb Conc. 33.1 g/dL (33.0-37.0); Mean Corpuscular Hgb 28.9 pg (27.0-31.0); Mean Corpuscular Volume 87.1 fL (80.0-94.0); Mean Platelet Volume 9.5 fL (7.4-10.4); Nucleated Red Blood Cells % 0 % (-); Platelet Count 311 10^3/uL (130-400); Red Blood Cell Count 4.12 10^6/uL (4.70-6.10); White Blood Cell Count 11.1 10^3/uL (4.8-10.8)
--- NOTE | 2023-08-28 07:53 | W.PN.UPDATE ---
Update Note
Progress Note Update
Mr. Albarran is POD6 following his right prepatellar bursa I&D. He is resting comfortably in bed this morning and reports his symptoms continue to gradually improve with time. His midline has been placed.
Directed exam of the right knee reveals surgical incision well approximated with sutures. No signs of drainage, purulence or bleeding. No drainage on bandage. Erythema continues to improve. Mild tenderness about the lateral patella. Otherwise no
tenderness. Calf soft and nontender. NVID.
58 yo M POD6 right prepatellar bursa I&D under the direction of Dr. Rodríguez
--Cultures positive for Strep pyogenes. Continue antibiotics per ID recommendations. Currently cefaozlin. Looks like plan on discharge is two weeks IV antibiotics followed by oral.
--Trend CRP. WBC and CRP downtrending.
--Pain control.
--we appreciate the assistnace of PT/OT. Weight-bear as tolerated right lower extremity..
--Glucose control due to history of uncontrolled diabetes (recent A1c>10). Appreciate IM recommendations.
--Will continue to follow.
--Case management consult for discharge planning. Sounds like hopeful discharge for this afternoon.
[2023-08-28 07:58] LABS: Glucose - Point of Care 123 mg/dl (70-99)
[2023-08-28 08:00] VITALS: BP 115/69
--- NOTE | 2023-08-28 09:22 | PN.DE.MGMTRT ---
Insulin Management
- -
08/28/2023: Diabetes Management Consult
58-year-old male with PMH of kidney stones adn T2DM. Pt admitted on 08/18 with right knee pain, swelling, redness and Sepsis due to Right Knee Prepatellar Bursitis. Noted for Hyperglycemia on admission. A1C of 10.6%, Cr 0.8, eGFR >60. Pt was taking
Metformin 500mg BID prior to admission.
He was started on Lantus 20 units at HS that was increased to 30 units due to persistent Hyperglycemia.
POD# 6 s/p r Rt knee prepatellar bursa I&D and bursectomy with purulent fluid drained.
Pt Awake, A/O x3, sitting up in chair. Able to participate in discussion regarding diabetes plan of care.
Glucose remains stable and in range, premeal 78 to 127, FBG 123 this AM.
Will cont Lantus 28 units @ HS, Glipizide 2.5mg BID, and Metformin 1000mg BID. Cont current regimen at discharge
Pt has CGM-Nancy in place. He has been self administering Lantus at bedtime.
Diabetes History
- -
Type of Diabetes: 2 requiring insulin
Pre-Admission Diabetes Regimen
Lab Results
Hemoglobin A1c 10.6 % (4.0-5.6) H 08/20/23 07:40
Insulin Pump Settings
IP Diabetes Regimen
08/27/23 08/27/23 08/27/23
12:03 16:47 21:09
POC Glucose 123 H 127 H 122 H
08/28/23
07:56
POC Glucose 123 H
Meal type: Dinner
Meal type: Lunch
Amount consumed: 100%
Amount consumed: 100%
Patient Education
[2023-08-28] MEDS: NOVOLOG FLEXPEN-LOW RESISTANCE SC (09:40)
[2023-08-28] MEDS: GLUCOPHAGE 1000 MG PO (09:51)
[2023-08-28] MEDS: GLUCOTROL 2.5 MG PO (09:51)
[2023-08-28] MEDS: ROXICODONE 10 MG PO (09:59)
--- NOTE | 2023-08-28 10:29 | W.PN.ID1 ---
Date of Service
Date of Service: August 28, 2023
Today's Communication
Continue antibiotics
Assessment / Plan
RLE prepatellar bursitis
- S/P bursectomy
Leukocytosis
Fever
Elevated CRP
DM (uncontrolled; HbA1c = 10.6)
Hx nephrolithiasis
Recommendations:
S/P bursectomy
Continue with cefazolin.
Monitor white count and temperature curve.
Given extent of infection, continue cefazolin through 09/09/2023. Thereafter, continue with cephalexin for additional week.
Will follow-up in office. Appointment has been made.
����������������������������������������������������������
Chief Complaint
-: Fever and Cellulitis
Subjective / Review of Systems
Review of Systems: No Fever and No Chills
Vital Signs / Physical Exam
Vital Signs
Vital Signs
Temp Pulse Resp BP Pulse Ox
97.9 F 60 18 115/69 96
08/28/23 08:00 08/28/23 08:00 08/28/23 08:00 08/28/23 08:00 08/28/23 08:00
Physical Exam
Constitutional: No Acute Distress, Comfortable and Non-toxic
Pulmonary: Non Labored
Wound: Other (Right knee with ongoing erythema, although slightly improved from prior. Little tenderness. Incision intact with sutures. No drainage.)
Neurological: Awake and Alert
Psychological: Calm
Objective Data
Lab Data
Lab Results
08/28/23 05:19
08/27/23 04:52
ESR 18 mm/hour (0-20) 08/19/23 22:10
Estimated Creat Clear 106 ml/min 08/27/23 04:52
Lactic Acid Cancelled 08/20/23 02:00
Total Bilirubin 2.9 mg/dl (0.2-1.3) H 08/20/23 07:40
AST 30 U/L (17-59) 08/20/23 07:40
ALT 27 U/L (0-50) 08/20/23 07:40
Alkaline Phosphatase 77 U/L (38-126) 08/20/23 07:40
C-Reactive Protein 25.60 mg/L (0.0-10.00) H 08/28/23 05:19
Most recent labs reviewed.
Micro Results:
08/22/23 16:59 Wound Culture - Final
Knee - Right Streptococcus pyogenes
Gram Stain - Final
08/22/23 17:04 Wound Culture - Final
Knee - Right Streptococcus pyogenes
Gram Stain - Final
08/22/23 16:59 Anaerobic Culture - Final
Knee - Right NO ANAEROBES ISOLATED
08/22/23 17:04 Anaerobic Culture - Final
Knee - Right NO ANAEROBES ISOLATED
08/22/23 17:04 Fungal Culture - Preliminary
Knee - Right Culture in progress.
Positive cultures are reported as soon as detected.
Final report to follow in four to five weeks.
08/22/23 16:59 Fungal Culture - Preliminary
Knee - Right Culture in progress.
Positive cultures are reported as soon as detected.
Final report to follow in four to five weeks.
08/19/23 22:09 Blood Culture - Final
Blood/Venous No Growth - Final Report
08/19/23 22:09 Blood Culture - Final
Blood/Venous No Growth - Final Report
08/21/23 10:05 Wound Culture - Final
Knee - Right No growth
Gram Stain - Final
[2023-08-28 11:00] VITALS: BP 118/73
[2023-08-28 11:42] LABS: Glucose - Point of Care 188 mg/dl (70-99)
[2023-08-28] MEDS: ROXICODONE 5 MG PO (11:43)
[2023-08-28] MEDS: NOVOLOG FLEXPEN-LOW RESISTANCE 1 UNITS SC (11:44)
--- NOTE | 2023-08-28 12:26 | CM ---
CM faxed [facility] information to [facility]. Patient seen bedside, plan discharge home with [facility] to conduct teaching at home with patient and . Update to [facility] on patients discharge. Patient will require walker upon discharge, TT sent
to PT, script placed in patients chart. Patients to provide transportation home. CM will continue to follow for discharge planning needs.
Plan; home with [facility] and [facility] fax: [phone]
[facility] fax: [phone]
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
[2023-08-28 15:12] VITALS: BP 107/70
== END 2023-08-28 17:25 | disposition home health service (06) | DRG 854 ==
LOC: 4 EAST ACU 23:31
PROVIDERS: Internal Medicine; Physician Assistant Medical; Radiology Vascular & Interventional Radiology; Student in an Organized Health Care Education/Training Program; ADMITTING PHYSICIAN Hospitalist; ATTENDING PHYSICIAN Internal Medicine; CONSULT PHYSICIAN Orthopaedic Surgery; EMERGENCY PHYSICIAN Student in an Organized Health Care Education/Training Program; FAMILY PHYSICIAN Family Medicine; OTHER PHYSICIAN Internal Medicine Infectious Disease
PROC: 0S9C3ZX Drainage of Right Knee Joint, Percutaneous Approach, Diagnostic (ICD-10-PCS; 2023-08-21)
PROC: 0MBN0ZZ Excision of Right Knee Bursa and Ligament, Open Approach (ICD-10-PCS; 2023-08-22)
PROC: 0M9N0ZZ Drainage of Right Knee Bursa and Ligament, Open Approach (ICD-10-PCS; 2023-08-22)
DX: A41.9 Sepsis, unspecified organism (principal); L03.115 Cellulitis of right lower limb; E11.65 Type 2 diabetes mellitus with hyperglycemia; R79.82 Elevated C-reactive protein (CRP); M70.41 Prepatellar bursitis, right knee; B95.4 Other streptococcus as the cause of diseases classified elsewhere; Z87.442 Personal history of urinary calculi; Z88.0 Allergy status to penicillin; Z79.82 Long term (current) use of aspirin; Z79.84 Long term (current) use of oral hypoglycemic drugs
CPT/HCPCS: 88304; 20610; 73564; 76882; 76942; 80048; 80053; 82962; 83036; 83605; 83735; 85025; 85652; 86140; 86618; 87040; 87070; 87075; 87077; 87102; 87147; 87205; 96374; 97116; 97161; 97166; 97530; 97535; 99285; J3480

== ENCOUNTER 2024-10-09 06:26 | Day surgery (SDC) | payer OTHER, SELFPAY ==
[2024-10-09 10:26] LABS: Glucose - Point of Care 126 mg/dl (70-99)
== END 2024-10-09 13:00 | disposition home or self-care (01) ==
LOC: GI 06:26
PROVIDERS: ATTENDING PHYSICIAN Student in an Organized Health Care Education/Training Program; FAMILY PHYSICIAN Nurse Practitioner Family
DX: Z12.11 Encounter for screening for malignant neoplasm of colon (principal); K63.5 Polyp of colon; K62.1 Rectal polyp
CPT/HCPCS: 45385; 88305; 82962

== ENCOUNTER 2025-03-25 20:39 | Emergency (ER) | payer SELFPAY ==
[2025-03-25 20:45] VITALS: BP 138/81
[2025-03-25 21:29] LABS: Hematocrit 32.5 % (39.0-52.0); Hemoglobin 11.4 g/dL (13.0-18.0); Mean Corp Hgb Conc. 35.1 g/dL (33.0-37.0); Mean Corpuscular Volume 82.3 fL (80.0-94.0); Nucleated Red Blood Cells % 0 % (-); Platelet Count 227 10^3/uL (130-400); Red Cell Dist. Width 12.7 % (11.5-14.5)
[2025-03-25 21:46] LABS: ALT (SGPT) 35 U/L (0-50); AST (SGOT) 36 U/L (17-59); Albumin 4.2 g/dl (3.5-5.0); Alkaline Phosphatase 69 U/L (38-126); Blood Urea Nitrogen 17 mg/dl (9-20); Calcium 9.4 mg/dl (8.4-10.2); Carbon Dioxide 30 mmol/L (22-30); Chloride 97 mmol/L (98-107); Estimated Creatinine Clearance 84 ml/min; Glucose 200 mg/dl (70-99); Potassium 3.9 mmol/L (3.5-5.1); Sodium 132 mmol/L (135-145); Total Protein 6.6 g/dl (6.3-8.2); eGFR > 60.00
--- NOTE | 2025-03-25 21:59 | ED.GENMED ---
History of Present Illness
General
Chief Complaint: Trauma Significant Mechanism
Source: patient and spouse
Time Seen by Provider: 03/25/25 21:16
History of Present Illness
History of Present Illness:
59-year-old male presenting to the emergency department at the request of urgent care for evaluation after he was standing in front of a truck talking to a friend yesterday when the truck jumped forward pinning him between the truck and a total cart
by the wall noting that he was only pinned for a few seconds. Since then he has had some pain, swelling and ecchymosis to the medial right thigh. Patient's brought him to urgent care today and he was recommended to come to the ER for
evaluation for possible rhabdomyolysis. Patient states his pain is completely tolerable, notes that when he sits for an extended time it does start to ache a little bit more. Denies any pallor or color changes, weakness or numbness and notes that
he is still able to range of motion the extremity without any difficulty.
Past History
Past History
ED Past Medical History: NIDDM and Other (Kidney stones)
ED Past Surgical History: Other (hernia)
Social History
Tobacco: Non-smoker
Alcohol: None
Drug: None
Personal:
Living: with family
Employment: Employed
Family History
Family History: Other
Review of Systems
Review of Systems
All Other Systems: ROS reviewed and negative except as documented in HPI and ROS
Phy Exam
Physical Exam
Physical Exam:
GENERAL: Alert , in no apparent distress
EYE: conjunctiva clear
Head: Normocephalic atraumatic
NECK: Supple,
ENT: mmm.
LUNGS: no acute respiratory distress
NEUROLOGICAL: Alert and oriented
SKIN: Warm and dry, skin intact. Ecchymosis along the medial aspect of the thigh, no breaks in the skin
MUSCULOSKELETAL: Right lower extremity: patient allows for full range of motion of the hip, knee and ankle/foot without any difficulty. Mild soft tissue swelling at the proximal thigh noted. Compartments are soft. Easily palpable pedal and tibial
pulse. Cap refill less than 2 seconds and sensation is grossly intact light touch. Extremity is warm and well-perfused.
PSYCH: Normal and appropriate interaction.
Scores
Heart Failure Risk
Heart Failure Risk Score: Not Applicable
Heart Score for Chest Pain Patients
STEMI patient?: Not applicable
Withdrawal Assessment of Alcohol
Withdrawal Assessment Completed?: Not applicable
Course
Orders/Labs/Results
Orders:
Orders
03/25/25 21:17
Complete Blood Count/With Diff Urgent
Comprehensive Metabolic Panel Urgent
Total CK [Creatine Phosphokinase] Urgent
Abnormal Lab Results
03/25/25
21:17
WBC 11.8 H 10^3/uL
(4.8-10.8)
RBC 3.95 L 10^6/uL
(4.70-6.10)
Hgb 11.4 L g/dL
(13.0-18.0)
Hct 32.5 L %
(39.0-52.0)
Absolute Neuts (auto) 8.1 H 10^3/uL
(1.4-6.5)
Absolute Monos (auto) 0.9 H 10^3/uL
(0.1-0.6)
Lymphocytes % 19.9 L %
(20.5-51.1)
Sodium 132 L mmol/L
(135-145)
Chloride 97 L mmol/L
(98-107)
Glucose 200 H mg/dl
(70-99)
Creatine Kinase 839 H U/L
(55-170)
03/25/25 21:17
03/25/25 21:17
Vital Signs
Initial and Last Documented VS:
Initial Vital Signs
Temp Pulse Resp BP Pulse Ox
97.3 F 110 22 138/81 98
03/25/25 20:45 03/25/25 20:45 03/25/25 20:45 03/25/25 20:45 03/25/25 20:45
Last Documented Vital Signs
Temp Pulse Resp BP Pulse Ox
97.3 F 110 22 138/81 98
03/25/25 20:45 03/25/25 20:45 03/25/25 20:45 03/25/25 20:45 03/25/25 22:00
MDM/Problems Addressed
Differential Diagnosis Includes:
Compartment syndrome given the trauma however patient is not exhibiting any signs or symptoms of compartment syndrome
I do not suspect rhabdomyolysis although patient does have an elevated CPK likely due to the traumatic nature of the injury
Hematoma/contusion
MDM/Problems Addressed:
59-year-old male presenting to the ER for evaluation at the request of urgent care after he was pinned between a truck and a tool chest yesterday. Based off the mechanism I would have more concern for compartment syndrome however patient's
presentation is not consistent with this diagnosis. At this time I do think it is reasonable for patient to continue outpatient based management with ice, compression and elevation of the extremity, NSAIDs as needed for pain.
*Pulse Oximetry
SaO2: 98
Oxygen Mode of Delivery: Room air
Patient hypoxic: no
*Critical Care Note
Total Time (30-74mins, 75-104mins- exclusive of procedures): Not Applicable
ED Attending Note
-
Portions of this chart may have been created with voice recognition software.� Occasional wrong word or��sound alike� substitutions may have occurred due to the inherent limitations of voice recognition software.
Discharge Plan
Departure
Patient Disposition: Home (Routine Discharge)
Date of Disposition: 03/25/25
Time of Disposition: 22:00
Patient with high blood pressure during this ER visit?: No
Discharge Problem:
Contusion of right thigh
Instructions: Hematoma
Prescriptions:
No Action
aspirin [Aspirin Childrens] 81 MG tablet,chewable
81 mg PO DAILY
tamsulosin 0.4 MG capsule
0.4 mg PO QPM
cefazolin 10 gram Recon Soln
2 g IV Q8@0600,1400,2200 12 Days Qty: 36 0RF
metformin 1,000 mg Tablet
1,000 mg PO BID@0800,1700 Qty: 60 1RF
glipizide 5 mg Tablet
2.5 mg PO BID@0800,1700 Qty: 60 1RF
insulin glargine [Lantus Solostar U-100 Insulin] 100 unit/mL (3 mL) insulin pen
28 unit SC QPM Qty: 15 1RF
(DME) insulin syr/ndl U100 half gail 0.3 mL 30 gauge x 5/16' syringe
See Rx Instructions .Route Qty: 30 1RF
Rx Instructions:
As directed
cephalexin 500 mg capsule
500 mg PO Q8H 7 Days Qty: 21 0RF
Rx Instructions:
Start at 09/10/2023 after completion of IV antibiotics
oxycodone 5 mg tablet
5 mg PO Q6H PRN (Reason: Severe pain of the right knee) Qty: 20 0RF
Referrals:
Merry Mckeon MD [Family Provider, Family Practice]
Interventions
Interventions:
*Risk Screen - Suicide Last Done: 03/25/25 20:45
*General Assessment Last Done: 03/25/25 20:45
*Neglect/Abuse Screening Last Done: 03/25/25 20:45
*ED COVID-19 Vaccine History Last Done: 03/25/25 20:45
*ED Influenza Vaccine History Last Done: 03/25/25 20:45
[facility] Fall Risk Assessment Tool Last Done: 03/25/25 21:37
*Nursing Disposition Last Done: 03/25/25 22:16
Discharge Date and Time
Discharge Date/Time: 03/25/25 22:16
Print Language: MEXICAN
== END 2025-03-25 22:16 | disposition home or self-care (01) ==
LOC: EMR 20:39
PROVIDERS: Emergency Medicine; EMERGENCY PHYSICIAN Emergency Medicine; FAMILY PHYSICIAN Family Medicine
DX: S70.11XA Contusion of right thigh, initial encounter (principal); V98.8XXA Other specified transport accidents, initial encounter; E11.9 Type 2 diabetes mellitus without complications
CPT/HCPCS: 99283; 80053; 82550; 85025